=== PATIENT | male | born 1955 | race Caucasian/White ===

== ENCOUNTER 2024-11-23 11:01 | Emergency (ER) | payer MEDICARE, SELFPAY ==
[2024-11-23 11:09] VITALS: BP 147/80; PULSE 68; RESP 14; TEMP 36.6; O2SAT 97
[2024-11-23 11:17] VITALS: PULSE 71
--- OUTSIDE RECORDS SUMMARY | 2024-11-23 11:39 | XMS_ITS | Encounter Summary ---
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 chest. FINDINGS/IMPRESSION: Low lung volumes with bronchovascular crowding. There is no focal consolidation, pleural effusion, or pneumothorax. The cardiac silhouetteis normal. There is atherosclerotic calcification of the aortic arch. Degenerative changes are noted in the shoulders. Elevated left hemidiaphragm. Report dictated by Sandro Lawson MD, (Key Holder). Charlie Lopez MD have personally reviewed and interpreted this examination/study. > Interpreting Provider: Charlie Leon MD on 11/21/2024 10:30 PM Veronica Giraldo HEAD OF [employer] SALES REPRESENTATIVE DIAGNOSTIC IMAGING O RDERABLES Final Result documented in this encounter Visit Diagnoses Diagnosis Dizziness Dizziness and giddiness documented in this encounter Administered Medications Inactive Administered Medications - up to 3 most recent administrations Medication Order MAR Action Action Date Dose Rate Site 0.9% NaCl injection 1-10 mL 1-10 mL, Intracatheter, PRN, Other, peripheral line flush, Starting on 11/21/24 at 1938, Until 11/22/24 at 1837, Flush peripheral IV catheter with 1-10 mL of normal saline before and after medications and prn to clear blood from the line or to verify patency. 0.9% NaCl injection 3 mL 3 mL, Intracatheter, EVERY 8 HOURS, First dose on 11/21/24 at 2200, Until Discontinued, Flush peripheral IV catheter with 3 mL of normal saline every 8 hours. meclizine (Antivert) tablet 25 mg 25 mg, Oral, NOW, 1 dose, On 11/21/24 at 194 $ Given 11/21/2024 9:30 PM CDT 25 mg documented in this encounter Active and Recently Administered Medications Times are shown in CDT. Scheduled Medication Order 11/20/2024 11/21/2024 11/22/2024 0.9% NaCl injection 3 mL(Linked Group 1) 3 mL, Intracatheter, EVERY 8 HOURS, First dose on 11/21/24 at 2200, Until Discontinued, Flush peripheral IV catheter with 3 mL of normal saline every 8 hours. 2200 (Due) 0600 (Due)1400 (Due) meclizine (Antivert) tablet 25 mg (COMPLETED) 25 mg, Oral, NOW, 1 dose, On 11/21/24 at 1945 2130 ($ Given - Provider: Carlitos Langley RN) PRN Medication Order 11/20/2024 11/21/2024 11/22/2024 0.9% NaCl injection 1-10 mL(Linked Group 1) 1-10 mL, Intracatheter, PRN, Other, peripheral line flush, Starting on 11/21/24 at 1938, Until 11/22/24 at 183, Flush peripheral IV catheter with 1-10 mL of normal saline before and after medications and prn to clear blood from the line or to verify patency. Linked Groups Order Group 1: SALINE LOCK, INSERT AND MAINTAIN (CANCELED) Routine, CONTINUOUS, Starting on [facility] 11/21/24 at 1945, Until Specified, New collection, Task Completed: Yes And 0.9% NaCl injection 3 mLJump to med 3 mL, Intracatheter, EVERY 8 HOURS, First dose on [facility] 11/21/24 at 2200, Until Discontinued, Flush peripheral IV catheter with 3 mL of normal saline every 8 hours. And 0.9% NaCl injection 1-10 mLJump to med 1-10 mL, Intracatheter, PRN, Other, peripheral line flush, Starting on [facility] 11/21/24 at 1938, Until [place] 11/22/24 at 1837, Flush peripheral IV catheter with 1-10 mL of normal saline before and after medications and prn to clear blood from the line or to verify patency. documented in this encounter Care Teams Permaculture Designer Relationship Specialty Start Date End Date Leila Cespedes MD [address] [id number] PCP - General Internal Medicine 06/09/24 documented as of this encounter
--- OUTSIDE RECORDS SUMMARY | 2024-11-23 11:39 | XMS_ITS | CONTINUITY OF CARE DOCUMENT ---
Author Name enrique, enrique Address Unknown Organization [facility] Address [address] [place] [address] Phone [phone] Care Team Providers Care Autocad Designer Name Role Phone Cameron HAMMOND, Davion Unavailable PEGGY DIEGO Unavailable [phone] KERRIE NATHAN MD Unavailable PROBLEMS Condition Status Date Provider Notes OBESITY active Gosia Stahlschmidt CAD-08/15 CAROTID NEG completed - Davion edge MD HTN-02/16 ECHO MOD LVHEF 60 active ? Juan Jose dutton RN LEG PAIN-05/15 TANYA DOP NEG active - Luciana Barnes MD SLEEP APNEA-08/16 ON CPAP active Davion le MD CAD-07/17 NUC NEG completed - Davion Barnes MD SHORTNESS OF BREATH-06/17 NU C NEG active ? 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 RENAL ARTERY STENOSIS-02/16 DUPLEX NEG completed - Davion Barnes MD CAROTID ARTERY DISEASE- 02/16 CAROTID NEG completed - Davion Barnes MD OSTEOARTHRITIS-KNEES completed - Davion Barnes MD Hypercholesterolemia active Monika Gamino lder CAD S/P BMS-RCA MAY 2008 S/P RHETT RCA 09/26/2023 active Davion Barnes MD ENCOUNTERS Date Type Provider Location Encounter Diag nosis - In-person encounter Office Visit Davion Barnes MD [facility] - In-person encounter Office Visit Davion Barnes MD [facility] Ventricular tachycardia, unspecified - In-person encounter Office Visit Davion Barnes MD [facility] CVA - In-person encounter Office Visit Davion Barnes MD [facility] - In-person encounter Office Visit Davion Barnes MD [facility] CAD S/P BMS-RCA MAY 2008 S/P RHETT RCA 09/26/2023 - In-person encounter Office Visit Davion Barnes MD [facility] - In-person encounter Office Visit Davion Barnes MD [facility] - In-person encounter Office Visit Davion Barnes MD [facility] - In-person encounter Office Visit Davion Barnes MD [facility] - In-person encounter Office Visit Davion Barnes MD [facility] - In-person encounter Office Visit Davion Barnes MD [facility] - In-person encounter Office Visit Davion Barnes MD [facility] Gout - In-person encounter Office Visit Davion Barnes MD [facility] Diabetes mellitus - In-person encounter Office Visit Davion Barnes MD [facility] - In-person encounter Office Visit Davion Barnes MD [facility] - In-person encounter Office Visit Davion Barnes MD [facility] - In-person encounter Office Visit Davion Barnes MD [facility] OSTEOARTHRITIS - In-person encounter Office Visit Davion Barnes MD [facility] - In-person encounter Office Visit Davion Barnes MD [facility] - In-person encounter Office Visit Davion Barnes MD [facility] OSTEOARTHRITIS-KNEESCA ROTID ARTERY DISEASE- 02/16 CAROTID NEGRENAL ARTERY STENOSIS-02/16 DUPLEX NEG - In-person encounter Office Visit Davion Barnes MD [facility] CAD S/P BMS-RCA MAY 2008 S/P RHETT RCA 09/26/2023HTN-02/16 ECHO MOD LVHEF 60LEG PAIN-05/15 TANYA DOP NEGCAD-06/07 CARDIOPULM NLCAROTID ARTERY DISEASE - In-person encounter Office Visit Davion Barnes MD [facility] - In-person encounter Office Visit Davion Barnes MD [facility] - In-person encounter Office Visit Davion Barnes MD [facility] SHORTNESS OF BREATH-06/17 NUC NEG - In-person encounter Office Visit Davion Barnes MD [facility] CAD-08/15 CAROTID NEGCAD S/P BMS-RCA MAY 2008 S/P RHETT RCA 09/26/2023SLEEP APNEA-2/09 ON CPAPCAD-07/17 NUC NEG - In-person encounter Office Visit Davion Barnes MD [facility] - In-person encounter Office Visit Davion Barnes MD [facility] - In-person encounter Office Visit Davion Barnes MD [facility] HTN-02/16 ECHO MOD LVHEF 60SLEEP APNEA-2/09 ON CPAP - In-person encounter Office Visit aDvion Barnes MD [facility] CAD S/P BMS-RCA MAY 2008 S/P RHETT RCA 09/26/2023Hypercholeste rolemia VITAL SIGNS Date Observation Value Provider Body Mass Index (Ratio) 45.77 kg/m2 Salma Barnes MD blood pressure, cuff size regular Ke rri Linda blood pressure, diastolic 70 mm[Hg] Ke rri Linda blood pressure, systolic 150 mm[Hg] Foster ri Linda oxygen saturation, oximetry 97 % Monika Mckeon pulse rate 61 /min Monika Gamino [facility] weight E&M 310 [lb_av] Monika Gamino [facility] height E&M 69 [in_i] Monika Gamino [facility] Body Mass Index (Ratio) 46.51 kg/m2 Salma Barnes MD blood pressure, diastolic 70 mm[Hg] Am yuan Ventimiglia [facility] blood pressure, systolic 132 mm[Hg] [place] nda Ventimiglia [facility] oxygen saturation, oximetry 98 % Maryjane Ventimiglia [facility] respiratory rate E&M 14 /min Susana Seals weight E&M 315 [lb_av] Susana Seals height E&M 69 [in_i] Susana Seals blood pressure, cuff size regular Williams Seals Body Mass Index (Ratio) 48.82 kg/m2 Salma Barnes MD blood pressure, diastolic 74 mm[Hg] Leobardo suarez Gomez blood pressure, systolic 159 mm[Hg] Tanya guardado Gomez oxygen saturation, oximetry 98 % [facility] pulse rate 68 /min [facility] blood pressure, cuff size regular Leobardo erick Gomez weight E&M 330.6 [lb_av] [facility] height E&M 69 [in_i] [facility] Gomez Body Mass Index (Ratio) 51.53 kg/m2 Salma Barnes MD blood pressure, diastolic -1 mm[Hg] Li nkLogic blood pressure, systolic 146 mm[Hg] Cassy ogic pulse rate 66 /min David blood pressure, diastolic 70 mm[Hg] Ja rret blood pressure, systolic 146 mm[Hg] Jar ret blood pressure, cuff size large Ja rret oxygen saturation, oximetry 97 % David respiratory rate E&M 16 /min David weight E&M 349 [lb_av] David y height E&M 69 [in_i] David y Body Mass Index (Ratio) 51.68 kg/m2 Salma Barnes MD blood pressure, diastolic 72 mm[Hg] Li nkLogic blood pressure, systolic 134 mm[Hg] Cassy kLogic blood pressure, cuff size large Ja rret blood pressure, diastolic 72 mm[Hg] Ja rret blood pressure, systolic 134 mm[Hg] Jar ret pulse rate 67 /min David oxygen saturation, oximetry 94 % David respiratory rate E&M 16 /min David weight E&M 350 [lb_av] David height E&M 69 [in_i] David Body Mass Index (Ratio) 52.71 kg/m2 Salma Barnes MD blood pressure, diastolic 86 mm[Hg] Chantal nkLog blood pressure, systolic 158 mm[Hg] Cassy kLog pulse rate 71 /min David blood pressure, cuff size regular Ja blood pressure, diastolic 86 mm[Hg] Ja rr blood pressure, systolic 158 mm[Hg] [facility] oxygen saturation, oximetry 95 % David respiratory rate E&M 16 /min Davdi weight E&M 357 [lb_av] David height E&M 69 [in_i] David Body Mass Index (Ratio) 54.78 kg/m2 Salma Barnes MD blood pressure, diastolic 87 mm[Hg] Williams Giordano blood pressure, systolic 188 mm[Hg] Marlena Giordano oxygen saturation, oximetry 97 % Melodie Giordano pulse rate 71 /min Melodie Giordano weight E&M 371 [lb_av] Melodie Giordano blood pressure, cuff size large An mychal Giordano height E&M 69 [in_i] Melodie Pasquale Body Mass Index (Ratio) 55.02 kg/m2 Norah Barnes blood pressure, diastolic 71 mm[Hg] Li nkLogic blood pressure, systolic 172 mm[Hg] Cassy Staceyogic pulse rate 62 /min Arlet Solo blood pressure, diastolic 71 mm[Hg] St acy Solo blood pressure, systolic 172 mm[Hg] Sta cy Solo oxygen saturation, oximetry 95 % Arletheidy Banda respiratory rate E&M 18 /min Arlet D sofiya weight E&M 372.6 [lb_av] Arletheidy Banda height E&M 69 [in_i] Arlet Banda Body Mass Index (Ratio) 55.52 kg/m2 Salma Barnes MD blood pressure, diastolic 75 mm[Hg] Chantal bishopLoghelena blood pressure, systolic 182 mm[Hg] Cassy Ibarraoghelena blood pressure, diastolic 75 mm[Hg] St ackaleb Banda blood pressure, systolic 182 mm[Hg] Arnoldo Banda oxygen saturation, oximetry 93 % Arlet Solo pulse rate 75 /min Arlet Solo respiratory rate E&M 16 /min Arlet arriaza weight E&M 376 [lb_av] Arlet Solo height E&M 69 [in_i] Arlet Solo Body Mass Index (Ratio) 55.22 kg/m2 Salma Barnes MD blood pressure, diastolic 74 mm[Hg] Chantal nkLoghelena blood pressure, systolic 156 mm[Hg] Cassy kLogic blood pressure, cuff size large Mi ye [place] blood pressure, diastolic 74 mm[Hg] Mi ye [place] blood pressure, systolic 156 mm[Hg] Patel helle [place] oxygen saturation, oximetry 96 % Zabrina Delcid respiratory rate E&M 16 /min Liudmila bradshaw Bhavin pulse rate 81 /min Zabrina jalloh weight E&M 374 [lb_av] Zabrina jalloh height E&M 69 [in_i] Zabrina jalloh Body Mass Index (Ratio) 54.49 kg/m2 Salma Barnes MD blood pressure, cuff size large Mi ye [place] blood pressure, diastolic 90 mm[Hg] Nh ye [place] blood pressure, systolic 150 mm[Hg] Patel parmar [place] oxygen saturation, oximetry 96 % Zabrina Delcid respiratory rate E&M 16 /min Liudmila Delcid pulse rate 66 /min Zabrina jalloh weight E&M 369 [lb_av] Zabrina jalloh height E&M 69 [in_i] Zabrina jalloh height E&M 69 [in_i] Davion Barnes MD Body Mass Index (Ratio) 50.06 kg/m2 Aleks Powers blood pressure, diastolic 80 mm[Hg] Earl Barnes MD blood pressure, systolic 138 mm[Hg] Ricky Barnes MD height E&M 69 [in_i] Davion Barnes MD weight E&M 339 [lb_av] Davion Barnes MD Body Mass Index (Ratio) 52.86 kg/m2 Aleks Powers blood pressure, cuff size regular Cy raoul Machuca blood pressure, diastolic 70 mm[Hg] Cy raoul Machuca blood pressure, systolic 140 mm[Hg] Nighat Machuca oxygen saturation, oximetry 93 % Margareth Machuca respiratory rate E&M 16 /min Margareth Machuca pulse rate 76 /min Margareth vera weight E&M 358 [lb_av] Margareth vera height E&M 69 [in_i] Margareth vera Body Mass Index (Ratio) 56.85 kg/m2 Aleks Powers blood pressure, diastolic, standing 80 mm [Hg] Davion Barnes MD blood pressure, systolic, standing 150 mm [Hg] Davion Barnes MD blood pressure, diastolic, sitting 80 mm[ Hg] Davion Barnes MD blood pressure, systolic, sitting 145 mm[ Hg] Davion Barnes MD blood pressure, diastolic, left arm 70 mm [Hg] Brianna O'David blood pressure, systolic, left arm 150 mm [Hg] Brianna O'David blood pressure, diastolic, right arm 70 m m[Hg] Brianna O'David blood pressure, systolic, right arm 130 m m[Hg] Brianna O'David blood pressure, diastolic 70 mm[Hg] [facility] O'David blood pressure, systolic 130 mm[Hg] [facility] O'David oxygen saturation, oximetry 97 % Brianna O'David respiratory rate E&M 18 /min Brianna O'David weight E&M 385 [lb_av] Brianna O'David height E&M 69 [in_i] Brianna O'David Body Mass Index (Ratio) 57.59 kg/m2 Renee ssa Puhse blood pressure, diastolic 80 mm[Hg] Da osvaldo Soren blood pressure, systolic 156 mm[Hg] Dac ia Soren oxygen saturation, oximetry 93 % Xochitl Soren respiratory rate E&M 18 /min Xochitl V oss pulse rate 72 /min Xochitl Soren weight E&M 390 [lb_av] Xochitl Soren height E&M 69 [in_i] Xochitl [place] Body Mass Index (Ratio) 57.29 kg/m2 Nestor Turner blood pressure, cuff size large Garret rri [facility] blood pressure, diastolic 80 mm[Hg] Garret rri [facility] blood pressure, systolic 130 mm[Hg] Foster Ernandezandreasadibaylor [facility] oxygen saturation, oximetry 98 % Monika Ernandeznancy respiratory rate E&M 20 /min Monika cabral pulse rate 78 /min Monika Ernandezlety [facility] weight E&M 388 [lb_av] Monika Hanny er height E&M 69 [in_i] Monika Hanny er Body Mass Index (Ratio) 55.67 kg/m2 Salma Barnes MD blood pressure, diastolic 79 mm[Hg] Khalif Saxena blood pressure, systolic 159 mm[Hg] Cindi Saxena oxygen saturation, oximetry 94 % Aby Saxena respiratory rate E&M 20 /min Griselda Saxena pulse rate 79 /min Aby vargas weight E&M 377 [lb_av] Aby Reagan guero height E&M 69 [in_i] Aby vargas pulse rate, sitting, left 64 /min Me selene Tyrell orthostatic blood pr essure, sitting, left arm, diastolic 71 Angle Santillan orthostatic blood pr essure, sitting, left arm, systolic 119 Angle Santillan pulse rate, sitting, right 64 /min M anna Santillan orthostatic blood pr essure, sitting, right arm, diastolic 65 Angle Santillan orthostatic blood pr essure, sitting, right arm, systolic 111 Angle Santillan height E&M 69 [in_i] Angle Santillan height in centimeters E&M 175.26 cm Me morton Santillan blood pressure, diastolic 70 mm[Hg] Khalif Saxena blood pressure, systolic 172 mm[Hg] Cindi Saxena pulse rate 85 /min Aby Reagan guero oxygen saturation, oximetry 97 % Aby Saxena respiratory rate E&M 18 /min Griselda Saxena Body Mass Index (Ratio) 55.37 kg/m2 Jessica Saxena weight E&M 375 [lb_av] AbyMarla Reagan [facility] blood pressure, diastolic 75 mm[Hg] Ar selene Santillan blood pressure, systolic 156 mm[Hg] Evelina altamirano Santillan pulse rate 80 /min Angle Santillan oxygen saturation, oximetry 97 % Angle Santillan respiratory rate E&M 16 /min Angle Santillan Body Mass Index (Ratio) 55.37 kg/m2 [facility] weight E&M 375 [lb_av] Angle Santillan blood pressure, diastolic 69 mm[Hg] Earl Barnes MD blood pressure, systolic 140 mm[Hg] Ricky Barnes MD Body Mass Index (Ratio) 53.45 kg/m2 [facility] pulse rate 78 /min Angle Santillan oxygen saturation, oximetry 98 % Angle Santillan respiratory rate E&M 15 /min Angle Santillan weight E&M 362 [lb_av] Angle Santillan Body Mass Index (Ratio) 54.39 kg/m2 Lia Oakley blood pressure, huang tolic, second observation 73 mm[Hg] Maude Elliottoney blood pressure, syst olic, second observation 153 mm[Hg] Maude Elliottoney blood pressure, diastolic 73 mm[Hg] Fatimah Elliottoney blood pressure, systolic 153 mm[Hg] Radha Oakley pulse rate 71 /min Maude Oakley oxygen saturation, oximetry 96 % Maude Oakley respiratory rate E&M 18 /min Maude Elliottoney weight E&M 367 [lb_av] Maude Oakley Body Mass Index (Ratio) 51.28 kg/m2 Shiv Jin blood pressure, diastolic, left arm 69 mm [Hg] Justin Jin blood pressure, systolic, left arm 126 mm [Hg] Justin Jin blood pressure, diastolic, right arm 74 m m[Hg] Justin Jin blood pressure, systolic, right arm 135 m m[Hg] Justin Burtonran blood pressure, diastolic 69 mm[Hg] Cox blood pressure, systolic 126 mm[Hg] Yoav Jin pulse rate 73 /min Justin Jin oxygen saturation, oximetry 98 % Justin Jin respiratory rate E&M 16 /min Justin Jin weight E&M 346 [lb_av] Justin Jin height E&M 69 [in_i] Justin Jin blood pressure, diastolic, standing 94 mm [Hg] Juan Jose Cain RN blood pressure, systolic, standing 229 mm [Hg] Juan Jose Cain RN blood pressure, diastolic, sitting 106 mm [Hg] Juan Jose Cain RN blood pressure, systolic, sitting 228 mm[ Hg] Juan Jose Cain RN blood pressure, huang tolic, supine, left arm 72 mm[Hg] Juan Jose Cain RN blood pressure, syst olic, supine, left arm 202 mm[Hg] Juan Jose Cain RN blood pressure, diastolic, left arm 88 mm [Hg] Juan Jose Cain RN blood pressure, systolic, left arm 189 mm [Hg] Juan Jose Cain RN blood pressure, diastolic, right arm 101 mm[Hg] Juan Jose Cain RN blood pressure, systolic, right arm 226 m m[Hg] Juan Jose Steeles RN blood pressure, diastolic 88 mm[Hg] Jarett gita Cain RN blood pressure, systolic 189 mm[Hg] Juan Jose Cain RN pulse rate 68 /min Juan Jose Cain RN oxygen saturation, oximetry 99 % Juan Jose Steelenato ALEJO respiratory rate E&M 20 /min Juan Jose bendernato RN weight E&M 370 [lb_av] Juan Jose Steelenato ALEJO blood pressure, diastolic, left arm 80 mm [Hg] Justin Jin blood pressure, systolic, left arm 140 mm [Hg] Yoavwilliams Jin blood pressure, diastolic, right arm 75 m m[Hg] Yoavwilliams Jin blood pressure, systolic, right arm 142 m m[Hg] Justin Jin blood pressure, diastolic 80 mm[Hg] Cox blood pressure, systolic 140 mm[Hg] Yoav williams Jin pulse rate 74 /min Yoavwilliams Jin oxygen saturation, oximetry 99 % Justin Jin respiratory rate E&M 18 /min Justin Jin weight E&M 349 [lb_av] Justin Jin blood pressure, diastolic, left arm 88 mm [Hg] Azul Bergeron blood pressure, systolic, left arm 184 mm [Hg] Azul Bergeron blood pressure, diastolic, right arm 71 m m[Hg] Azul Bergeron blood pressure, systolic, right arm 161 m m[Hg] Azul Bergeron respiratory rate E&M 18 /min Azul Bergeron pulse rate 62 /min Azul Bergeron oxygen saturation, oximetry 96 % Azul Bergeron blood pressure, systolic 71 mm[Hg] Mann Bergeron weight E&M 374 [lb_av] Azul Bergeron blood pressure, diastolic 78 mm[Hg] Ronan dodd Ayon blood pressure, systolic 173 mm[Hg] Antione jones Gabo pulse rate 76 /min Poonam Gabo oxygen saturation, oximetry 96 % Poonam Gabo respiratory rate E&M 18 /min Torsten Ayon weight E&M 358 [lb_av] Poonam Ayon blood pressure, diastolic 68 mm[Hg] Jarett Cain RN blood pressure, systolic 127 mm[Hg] Juan Jose Cain RN pulse rate 77 /min Juan Jose Cain RN oxygen saturation, oximetry 97 % Juan Jose Cain RN respiratory rate E&M 18 /min Juan Jose james RN weight E&M 341 [lb_av] Juan Jose Cain RN blood pressure, diastolic 68 mm[Hg] Yue seph [place] blood pressure, systolic 128 mm[Hg] Jarad ferguson [place] pulse rate 78 /min Zeferino [place] oxygen saturation, oximetry 98 % Zeferino [place] respiratory rate E&M 16 /min Zeferino [place] weight E&M 343 [lb_av] Zeferino [place] blood pressure, diastolic 56 mm[Hg] Jarett Cain RN blood pressure, systolic 108 mm[Hg] Juan Jose Cain RN pulse rate 60 /min Juan Jose Cain RN oxygen saturation, oximetry 96 % Juan Jose Cain RN respiratory rate E&M 18 /min Juan Jose james RN weight E&M 347 [lb_av] Juan Jose Cain RN ALLERGIES No Known Drug Allergies RESULTS Date Observation Value Provider Reference Range Interpretation Location red blood cell distribution width, size density 42.5 fL LinkLog[facility] - immature granulocytes, percentage of total cells, blood 0.1 % [facility] - nucleated red blood cells as percent of blood leukocytes 0.0 % [facility] - red blood cell (erythrocyte) count, per high power field 0.0 10*3/UL [facility] - eosinophils as percent of blood leukocytes 1.8 % [facility] - neutrophils as percent of blood leukocytes 52.7 % [facility] - Absolute Neutrophils 4.4 CELLS/UL [facility] 1.5 - 7.8 basophils as percent of blood leukocytes 0.8 % [facility] - Absolute Basophils 0.1 CELLS/UL [facility] 0.0 - 0.2 monocytes as percent of blood leukocytes 9.0 % [facility] - Absolute Monocytes 0.8 CELLS/UL [facility] 0.2 - 1.0 lymphocytes as percent of blood leukocytes 35.6 % [facility] - Absolute Lymphocytes 3.0 CELLS/UL [facility] 0.9 - 3.9 mean platelet volume 10.2 (?) LinkLog - platelet count 276.0 THOUSAND/UL [facility] 100.0 - 400.0 mean corpuscular hemoglobin concentration, RBC 33.0 G/DL [facility] 31.0 - 38.0 mean corpuscular hemoglobin, RBC 30.3 pg [facility] 25.0 - 35.0 mean corpuscular volume, RBC 91.6 fL [facility] 75.0 - 100.0 hematocrit, blood 43.6 % [facility] 35.0 - 55.0 hemoglobin, blood 14.4 g/dL [facility] 11.5 - 16.5 erythrocyte count, whole blood 4.8 MILLION/UL [facility] 3.5 - 5.5 hemoglobin A1C, blood, as % of total hemoglobin 6.0 % [facility] 4.0 - 6.0 anion gap, serum 13.1 [facility] - albumin/globulin ratio, serum 2.2 g/dL [facility] 1.1 - 2.5 globulin, serum 3.4 [facility] 2.3 - 3.8 urea nitrogen/creatinine ratio, serum 14.0 [facility] - Estimated Glomerular Filtration Rate (calc) 81.0 (?) [facility] 59.0 - chloride, serum 100.9 mmol/L [facility] 98.0 - 107.0 potassium, serum 3.9 mmol/L [facility] 3.5 - 5.1 sodium, serum 143.0 mmol/L [facility] 136.0 - 145.0 creatine, serum 1.0 mg/dL [facility] 0.7 - 1.2 carbon dioxide, venous blood 29.0 mmol/L [facility] 23.0 - 31.0 albumin, serum 4.1 g/dL [facility] 3.5 - 5.2 calcium, serum 10.0 mg/dL [facility] 8.6 - 10.2 aspartate aminotransferase (SGOT), serum 27.0 1/L [facility] 0.0 - 40.0 alkaline phosphatase, serum 49.0 1/L [facility] 40.0 - 130.0 alanine aminotransferase (SGPT), serum 31.0 1/L [facility] 0.0 - 41.0 protein, total, serum 7.5 g/dL [facility] 6.6 - 8.7 urea nitrogen, blood 14.0 mg/dL [facility] 8.0 - 23.0 Glucose Urine 84.0 mg/dL [facility] 74.0 - 99.0 bilirubin, serum, total 0.2 mg/dL [facility] 0.0 - 1.2 very low density lipoproteins 53.6 mg/dL [facility] 5.0 - 40.0 High LDL/HDL (low-density lipoprotein/high-den sity lipoprotein) ratio 2.0 RATIO [facility] - HDL cholesterol, serum 37.0 mg/dL [facility] 35.0 - 55.0 sum total cholesterol 164.0 mg[facility] 0.0 - 200.0 Triglycerides-direct 268.0 mg/dL [facility] 0.0 - 150.0 High platelet count 343 10*3/uL [facility] hematocrit, blood 42.4 % [facility] thyroid stimulating hormone, serum 1.70 u[IU]/mL [facility] alanine aminotransferase (SGPT), serum 26 1/L [facility] aspartate aminotransferase (SGOT), serum 26 1/L [facility] creatinine, serum 0.8 mg/dL [facility] potassium, serum 4.2 mmol/L [facility] sodium, serum 141 mmol/L [facility] creatinine, random, urine 332.6 mg/dL Link[facility] 20-370 Vanillylmandelate acid/creatinine ratio, urine, quantitative 3.0 mg/g{creat} [facility] 1.1-4.1 aldosterone, serum 7 ng/dL [facility] plasma renin activity 32.09 [facility] 0.25-5.82 High thyroid stimulating hormone, serum 1.544 u[IU]/mL [facility] cholesterol/HDL ratio, serum 3.1 [facility] triglyceride, serum, fasting 89 mg/dL [facility] HDL cholesterol, serum 49 mg/dL [facility] LDL cholesterol, serum 84 mg/dL [facility] cholesterol, serum 151 mg/dL [facility] globulins, serum, total 3.0 g/dL [facility] estimated glomerular filtration rate 107.1 mL/min [facility] albumin/globulin ratio, serum 1.3 [facility] protein, total, serum 6.9 g/dL [facility] albumin, serum 3.9 g/dL [facility] bilirubin, serum, total 0.5 mg/dL [facility] alkaline phosphatase, serum 61 1/L [facility] alanine aminotransferase (SGPT), serum 31 1/L [facility] aspartate aminotransferase (SGOT), serum 25 1/L [facility] calcium, serum 9.6 mg/dL [facility] blood glucose, fasting 96 mg/dL [facility] creatinine, serum 0.8 mg/dL [facility] urea nitrogen, blood 12 mg/dL [facility] carbon dioxide, serum, total 29 mmol/L [facility] chloride, serum 106 mmol/L [facility] potassium, serum 4.0 mmol/L [facility] sodium, serum 143 mmol/L [facility] platelet count 261 10*3/uL [facility] red blood cell distribution width 14.1 % [facility] mean corpuscular hemoglobin concentration, RBC 33.6 g/dL [facility] mean corpuscular hemoglobin, RBC 30.3 pg [facility] mean corpuscular volume, RBC 90.2 fL [facility] hematocrit, blood 44.0 % [facility] hemoglobin, blood 14.8 g/dL [facility] [facility] ([facility]BC[facility] count 4.9 10*6/mm3 [facility] neutrophils, segmented as percent of blood leukocytes 3.8 % [facility] monocyte count, blood 0.4 10*3/mm3 [facility] lymphocyte count, blood 2.1 10*3/mm3 [facility] neutrophils as percent of blood leukocytes 60.3 % [facility] monocytes as percent of blood leukocytes 5.7 % [facility] lymphocytes as percent of blood leukocytes 34.0 % [facility] leukocyte count, blood 6.3 10*3/mm3 [facility] alanine aminotransferase (SGPT), serum 35 1/L [employer] 9-60 Normal aspartate aminotransferase (SGOT), serum 27 1/L [employer] 10-35 Normal alkaline phosphatase, serum 54 1/L [employer] 40-115 Normal bilirubin, serum, total 0.4 mg/dL [employer] 0.2-1.2 Normal albumin/globulin ratio, serum 1.4 (calc) [employer] 1.0-2.1 Normal globulins, serum, total 2.9 G/DL (CALC) [employer] 2.1-3.7 Normal albumin, serum 4.1 g/dL [employer] 3.6-5.1 Normal protein, total, serum 7.0 g/dL [employer] 6.2-8.3 Normal calcium, serum 9.2 mg/dL [employer] 8.6-10.2 Normal carbon dioxide, venous blood 28 mmol/L [employer] 21-33 Normal chl [id number]||2024-11-23 14:12:00|CT_ITS|FROHNERTP|Imaging|[id number]|"EXAMINATION: CTA BRAIN/CAROTID DATE: 11/23/2024 13:54 INDICATION: Intermittent dizziness TECHNIQUE: Computed tomographic angiography (CTA) of the head and neck was performed with 100 mL Omni paque-350 intravenous contrast. Multiplanar reconstructions and maximum intensity projection 3D-recon structions of the carotid arteries and of the intracranial arteries were created by the technologist on a separate workstation. Precontrast CT of the head was also obtained. Automated exposure control and iterative reconstruction technique were employed.The dose-length product was 1746.69 mGy-cm. COMPARISON: None. FINDINGS: Carotid arteries: The aortic arch and the great vessels arising from the arch are normal in caliber with mild scattered nonhemodynamically significant atherosclerotic plaque and no dissection. There is small amount of at herosclerotic plaque with 0% stenosis of the right and left carotid bulbs relative to normal distal a rtery lumen diameter (NASCET criteria). The bilateral extracranial vertebral arteries are codominant with no atherosclerotic plaque. Groundglass opacity in the visualized upper lungs likely related to e xpiratory phase of imaging. Cervical soft tissues are unremarkable. Mild reversal of the normal cervi marycruz lordosis with moderate spondylosis. 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 A few additional infarcts in the right frontal and parietal lobe lewis radiata. No acute intracranial hemorrhage, acute infarction or abnormal extra axial fluid collection. There is mild sc attered white matter hypoattenuation consistent with chronic small vessel ischemic disease. Symmetric prominence of the sulci consistent with mild age-appropriate diffuse cerebral volume loss. Ventricle s are normal and symmetric. No mass/mass effect. No abnormally enhancing lesions on the postcontrast imaging. Moderate mucosal thickening the right maxillary sinus. The orbits and mastoid air cells are normal. Intracranial arteries Vertebral arteries are codominant. Atherosclerotic calcifications without hemodynamically significant stenosis at the bilateral intracranial vertebral arteries and bilateral carotid siphons. There is mi ld, <50% stenosis at the right A1, left M1 and P1 segments. Moderate 50-70% stenosis at the left A1 s egment and right M1 segment. Severe, >70% stenosis at a couple locations along the right P1 segment. Patent anterior communicating artery. There are no aneurysms identified. Cerebral arterial arborizat ion appears symmetric. IMPRESSION: 1. Small amount of atherosclerotic plaque with 0% stenosis of the right carotid bulb relative to norm al distal artery lumen diameter (NASCET criteria). 2. Moderate-sized old infarct in the right parieto-occipital region with several smaller chronic infa rcts in the right frontal and parietal lobe lewis radiata. No evident acute intracranial process or abnormally enhancing brain lesions. 3. Scattered intracranial atherosclerosis with severe stenosis a couple locations along the right P1 segment, moderate stenosis at the right M1 and left A1 segments and mild stenosis at the right A1, le ft M1 and left P1 segments. Reviewed, dictated and finalized at location A. IMPRESSION: 1. Small amount of atherosclerotic plaque with 0% stenosis of the right carotid bulb relative to normal distal artery lumen diameter (NASCET criteria). 2. Moderate-sized old infarct in the right parieto-occipital region with severa l smaller chronic infarcts in the right frontal and parietal lobe lewis radiat a. No evident acute intracranial process or abnormally enhancing brain lesions. 3. Scattered intracranial atherosclerosis with severe stenosis a couple locatio ns along the right P1 segment, moderate stenosis at the right M1 and left A1 se gments and mild stenosis at the right A1, left M1 and left P1 segments. "
--- OUTSIDE RECORDS SUMMARY | 2024-11-23 11:39 | XMS_ITS | Continuity of Care Document ---
Author Organization [facility] Address [address] [place] [address] Phone Care Team Providers Care Senior Behavioral Scientist Name Role Phone Ashu HAMMOND, Emerson Unavailable Unavailable Procedures Procedure Date Work/medical disability examination [facility] Prolonged serv, w/o contact, 1st hr X-ray exam of knee, 1 or2 views 010 X-ray exam of both knees, standing X-ray exam of knee, 1 or2 views 010 Advance Directives Directive Yes / No Effective Date File Name No Information Encounters Encounter Description Practice Location Reason(s) For Visit Diagnoses Date Provider Providers Copied on Encounter Work/medical disability examination [facility], [address] [place] [address], [id number], tel:[phone] [facility]G Ashu Norman. [address] [place] [address], [id number], [place]. tel:[phone] Family History Family Member Type Diagnosis Age At Onset No Information Payers Payer name Insurance type Covered alliance party ID Authoriza tion(s) No Information Social History Type Description Quantity Date Captured Comments Sex Male Smoking Status No Information Chief Complaint And Reason For Visit No Information Reason For Referral Reason For Referral No Information History Of Present Illness Encounter Date Complaint History Of Prese nt Illness No Information Functional Status Date Functional Assessmen t No Information Instructions Date Instruction Additional Infor mation No Information Assessments Type Assessment Date No Information Patient Care Teams Name Effective Dates (start - stop) Status Members No Information
--- OUTSIDE RECORDS SUMMARY | 2024-11-23 11:39 | XMS_ITS | Encounter Summary ---
Author Organization [facility] Address [address] [place] [address] Care Team Providers Care Bi Lead Name Role Phone Dariela Ignacio KELLIE Primary Care Provider [phone] Leila Cespedes MD Primary Care Provider Encounter Details Date Type Department Care Team (Late st Contact Info) Description 01/22/2020 Lab Requisition [facility] [address] [place] [address] Social History Tobacco Use Types Packs/Day Years Used Date Smoking Tobacco: Never Smokeless Tobacco: Never Sex and Gender Information Value Date Recorded Sex Assigned at Not on file 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 Gender Identity Not on file Sexual Orientation Not on file documented as of this encounter Plan of Treatment Upcoming Encounters Date Type Department Care Team (Late Contact Info) Description 01/14/2025 11:30 AM CDT Office Visit [facility] - Neurology [address] [place] [phone] Willis Gloria MD [address] [place] [address] [place] [phone] documented as of this encounter Procedures Procedure Name Priority Date/Time Associated Diagnosis Comments SARS-COV-2 (COVID-19) IN HOUSE Routine 01/22/2020 7:20 AM CDT documented in this encounter Results * SARS-COV-2 (COVID-19) IN HOUSE (01/22/2020 7:20 AM CDT) COVID-19 PCR Not detected Not detected, Invalid 01/23/2020 1:48 AM CDT [facility] Microbiology SPECIMEN FROM NASOPHARYNGEAL STRUCTURE / Unknown Collection / Unknown 01/22/2020 7:20 AM CDT 01/22/2020 4:07 PM CDT Narrative [facility] - 01/23/2020 1:48 AM CDT This Real Time RT-PCR assay was developed and its performance characteristics determined by [facility]. This test has been authorized by the Food and Drug administration (FDA)under an Emergency Use Authorization (EUA). This test has been validated in accordance with the FDA's guidance document Policy for Diagnostic Testing in Laboratories Certified to perform High Complexity Testing under CLIA prior to Emergency Use Authorization for Coronavirus Disease-2019 during the Public Health Emergency issued on September 05, 2019. FDA independent review of this validation is pending. This test is only authorized for the duration of time the declaration that circumstances exist justifying the authorization of emergency use of in vitro diagnostic tests for detection of SARS-CoV-2 virus and/or diagnosis of COVID-19 infection under section 564(b)(1) of the Act, 21 U.S.C 360bbb-3 (b)(1), unless the authorization is terminated or revoked sooner. us LAB - MICROBIOLOGY ORDERABLES Fi nal Result [facility] [address] [place] [address], [facility] [phone] documented in this encounter Visit Diagnoses Not on filedocumented in this encounter Additional Health Concerns Infection Onset Date Last Indicated Resolved Time COVID-19 Under Investigation 01/22/2020 01/22/2020 01/23/2020 1:48 AM CDT COVID-19 Under Investigation 08/20/2024 08/20/2024 08/20/2024 10:23 AM FOOD CRITIC documented as of this encounter Care Teams Bi Lead Relationship Specialty Start Date End Date Dariela Ignacio APRN-MELI [address] [phone] PCP - General Nurse Practitioner Family 01/19/1906/08/24 Leila Cespedes MD [address] [phone] PCP - General Internal Medicine 06/09/24 documented as of this encounter
--- OUTSIDE RECORDS SUMMARY | 2024-11-23 11:40 | XMS_ITS | Clinical Summary ---
Author Organization [facility] [employer] Address [address] [place] [address] Care Team Providers Care Key Cutter Name Role Phone Leila Cespedes MD Primary Care Provider Source Comments [facility],non-owned Affiliates and Associated Physician Practices is amultiple site organization consisting of ambulatory clinics and hospital sitesin [place], [place], [place] and [place]. This disclosure is being madepursuant to the Care Everywhere program and may not contain all information available regarding this patient. Last updated 18.[facility] [employer] Allergies No known active allergies Medications * Be aware that medications may not be up to date on this document. Alwaysverify current medications with the patient. vitamin D3 (Cholecalcifer ol) 25 MCG (1000 UNITS) tablet Take 2 (two) tablets by mouth once daily Active ascorbic acid (Vitamin C) 500 MG tablet Take 2 (two) tablets by mouth once daily Active acetaminophen (Tylenol) 325 MG tablet Take 2 (two) tablets by mouth every 4 hours as needed for Headache Maximum allowable Acetaminophen amount = 4 Grams (4000 mg) / 24 hours. 4 Active atorvastatin (Lipitor) 80 MG tablet Take 1 (one) tablet by mouth at bedtime 4 Active amLODIPine (Norvasc) 10 MG tablet Take 1 (one) tablet by mouth once daily 4 Active ticagrelor (Brilinta) 90 MG tablet Take 1 (one) tablet by mouth 2 times daily 4 Active cilostazol (Pletal) 100 MG tablet Take 1 (one) tablet by mouth 2 times daily 60 tablet 5 5 Active ezetimibe (Zetia) 10 MG tablet Take 1 (one) tablet by mouth once daily 5 Active metoprolol tartrate IR (Lopressor) 25 MG tablet Take 1 (one) tablet by mouth 2 times daily 60 tablet Active Active Problems Problem Noted Date Diagnosed Date Cerebrovascular disease 08/20/2024 Ventricular tachycardia (paroxysmal) 08/20/2024 Hypertension, unspecified type 08/20/2024 Confusion 08/20/2024 Weakness 07/23/2024 History of stroke 07/23/2024 Left hand weakness 07/23/2024 Cerebrovascular accident (CVA), unspecified mech anism 07/23/2024 History of viral infection 05/23/2024 Insect bite 05/23/2024 Lumbar herniated disc 05/23/2024 Occlusion and stenosis of unspecified carotid ar alejandra 05/23/2024 Pain in right leg 05/23/2024 Pain in unspecified limb 05/23/2024 Shortness of breath 05/23/2024 Left-sided weakness 05/20/2024 Dysarthria 05/20/2024 Unsteady gait 05/20/2024 Epidermoid cyst of skin 05/05/2024 Low back pain 04/28/2024 Skin lesion 03/24/2024 Hypokalemia 03/12/2024 Environmental allergies 11/20/2023 Elevated liver enzymes 11/07/2023 Steatosis of liver 10/03/2023 COVID-19 07/04/2022 Stage 1 chronic kidney disease 11/14/2021 Vitamin D deficiency 11/13/2021 Essential (primary) hypertension 11/07/2021 Nocturia 11/07/2021 Proteinuria 09/25/2021 Gout 04/01/2019 Type 2 diabetes mellitus 01/28/2019 Osteoarthrosis 12/28/2015 Atherosclerosis of renal artery 12/27/2010 Sleep apnea 12/27/2010 Obesity 07/06/2008 Hypercholesterolemia 07/08/1959 Resolved Problems Problem Noted Date Diagnosed Date Resolved Date TIA (transient ischemic attack) 05/20/2024 05/23/2024 Upper respiratory infection 01/23/2024 06/06/2024 Encounters Date Type Department Care Team Description 11/22/2024 5:35 PM CDT - 11/22/2024 5:37 PM CDT Emergency [facility] [address] [place] [address] Dizziness Discharge Disposition: Left Against Medical Advice/Discontinued Care 11/21/2024 Travel 10/20/2024 Telephone [facility] - Cardiology [address] [facility], [address] [phone] Aliya Henriquez MD Results 10/07/2024 Telephone [facility] - Cardiology [address] [facility], [facility] [address] [place] [phone] Aliya Henriquez MD Results from Last 3 Months Social History Tobacco Use Types Packs/Day Years Used Date Smoking Tobacco: Never Smokeless Tobacco: Never Tobacco Cessation:Counseling Given: No Alcohol Use Standard Drinks/Week Comments Never 0 [...] Recorded Patient Health Questionnaire-2 Score 0 07/26/2024 [facility] [place] [facility] Occup[facility] ional [facility] - Occupational Stress [...] any time in the past 12 m [facility], were you homeless or living in a fpc (including now)? No 08/22/2024 Sex and Gender Information Value Date Recorded Sex Assigned at Not on file Legal Sex Male 6:59 AM RN NEW GRAD Gender Identity Not on file Sexual Orientation Not on file Last Filed Vital Signs Vital Sign Reading [...] Mass Index 50.12 11/21/2024 5:24 PM CDT Plan of Treatment Upcoming Encounters Date Type Department Care Team (Late st Contact Info) Description 01/14/2025 11:30 AM CDT Office Visit [facility] - Neurology [address] [place] [address], [place] [phone] Willis Gloria MD [address] [place] [address] [place] [phone] Health Maintenance Due Date Last Done Comments COLOGUARD (AGES 45-75) - COLON CA SCREENING 1955 COLON MONITORING 1955 COLONOSCOPY - COLON CA SCREENING 1955 CT COLONOGRAPHY - COLON CA SCREENING 1955 Colorectal Cancer Screening 1955 FIT - COLON CA SCREENING 1955 FLEX SIG - COLON CA SCREENING 1955 HEPATITIS C SCREENING 11/03/1972 DTAP/TDAP/TD VACCINES (1 - Tdap) 1973 PNEUMOCOCCAL VACCINE 50+ (1 of 2 - PCV) 1973 ZOSTER VACCINE (1 of 2) 2004 Respiratory Syncytial Virus (RSV) Vaccine Pt: or over 60 yrs (1 - Risk 60-74 years 1-dose series) 2014 COVID-19 VACCINE ( season) 2024 12/25/2021, 09/22/2020, 09/15/2020, Additional history exists DIABETES RETINOPATHY SCREENING 05/20/2024 DIABETES-FOOT EXAM WITH MONOFILAMENT 05/20/2024 MEDICARE AW CALENDAR YEAR 2024 DIABETES-HGB A1C 03/11/2025 09/08/2024, , 07/23/2024 DIABETES - URINE PROTEIN SCREENING 09/08/2025 09/08/2024 DIABETES-SERUM CREATININE 11/21/20252024, 09/08/2024, 08/22/2024, Additional history exists INFLUENZA VACCINE Completed 04/28/2024, , 06/15/2021, Additional history exists DEPRESSION SCREENING Completed 08/20/2024, 05/20/20 24 HEPATITIS B VACCINE Aged Out No longe r eligible based on patient's age to complete this topic HIB VACCINE Aged Out No longer eligi ble based on patient's age to complete this topic HPV VACCINE Aged Out No longer eligi ble based on patient's age to complete this topic MENINGOCOCCAL (Group B) VACCINE SHARED DECISION-MAKING Aged Out No longer eligible based on patient's age to complete this topic MENINGOCOCCAL GROUPS A/C/Y/W VACCINE Aged Out No longer eligible based on patient's age to complete this topic Procedures Procedure Name Priority Date/Time Associated Diagnosis Comments TROPONIN-I HIGH SENSITIVE REFLEX 1HOUR Timed 11/22/2024 3:51 AM CDT URINALYSIS REFLEX MICROSCOPIC REFLEX CULTURE STAT 11/21/2024 9:27 PM CDT EKG 12-LEAD STAT 11/21/2024 9:26 PM CDT Dizziness TROPONIN-I HIGH SENSITIVE BASELINE + 1HR STAT 11/21/2024 9:26 PM CDT COMPREHENSIVE METABOLIC PANEL STAT 11/21/2024 9:26 PM CDT CBC W AUTO DIFFERENTIAL STAT 11/21/2024 9:[address] HEAD WO CONTRAST STAT 11/21/2024 8 :27 PM CDT Dizziness XR CHEST 1VW PORTABLE STAT 11/21/2024 8:01 PM CDT Dizziness SC ECG/REVIEW INTERPRET ONLY Routine 10/13/2024 9:40 AM CDT Ventricular tachycardia (paroxysmal) (HCC) CARDIAC PROCEDURE ORDER 09/21/2024 CARDIAC PROCEDURE ORDER 08/31/2024 CARDIAC PROCEDURE ORDER 08/28/2024 HEMOGLOBIN A1C Routine 07/24/2024 2:28 AM RN NEW GRAD Type 2 diabetes mellitus without complication, without long-term current use of insulin from Last 3 Months or Most Recently Relevant to Health Maintenance Results * TROPONIN-I HIGH SENSITIVE REFLEX 1HOUR (11/22/2024 3:51 AM CDT) Troponin I High Sensitive 7 <=35 ng/L 11/22/2024 4:46 AM CDT [facility] Delta Troponin I HS 11/22/2024 4:46 AM CDT [facility] Comment:Delta value intentio edy not calculated. Baseline to 1 hour specimen collection interval exceeded. Blood BLOOD SPECIMEN / Unknown Venipuncture / Unknown 11/22/2024 3:51 AM CDT 11/22/2024 3:56 AM CDT us Veronica Giraldo GEOTHERMAL OPERATIONS MANAGER-HOME SERVICE ADVISOR LAB - CHEMISTRY VALERIA BEAN Final Result [facility] [address] [place] [phone], [facility] [phone] * (ABNORMAL) URINALYSIS REFLEX MICROSCOPIC REFLEX CULTURE (11/21/2024 9:27 PM CDT) Color UA Yellow Yellow, Straw 11/21/2024 10:00 PM [facility] Clarity UA Turbid(A) Clear 11/21/2024 10:00 PM [facility] Glucose UA Normal Normal 11/21/2024 10:00 PM [facility] Bilirubin UA Negative Negative 11/21/2024 10:00 PM [facility] Ketone UA Negative Negative 11/21/2024 10:00 PM [facility] Specific [place] UA 1.017 1.005 - 1.030 11/21/2024 10:00 PM [facility] Blood UA Negative Negative 11/21/2024 10:00 PM [facility] pH UA 7.5 5.0 - 8.0 pH 11/21/2024 10:00 PM [facility] Protein UA Negative Negative 11/21/2024 10:00 PM [facility] Urobilinogen UA Normal Normal mg/dL 11/21/2024 10:00 PM [facility] Nitrite UA Negative Negative 11/21/2024 10:00 PM [facility] Leukocyte UA Negative Negative 11/21/2024 10:00 PM [facility] Reflex Status Culture not indicated 11/21/2024 10:00 PM [facility] Urine URINE SPECIMEN OBTAINED BY CLEAN CATCH PROCEDURE / Unknown Collection / Unknown 11/21/2024 9:27 PM CDT 11/21/2024 9:32 PM CDT Veronica [facility]iral[facility] LAB - URINALYSIS ORD ERABLES Final Result Performing Organization Address City/[facility]/ZIP Co de Phone Number [facility] [place] [address] [place] [address], [facility] [phone] * EKG 12-LEAD (11/21/2024 9:26 PM CDT) Ventricular Rate 73 BPM [facility] Atrial Rate 73 BPM [facility] P-R Interval 178 ms [facility] QRS Duration ms 162 ms [facility] Q-T Interval ms 432 ms [facility] QTC Calculation (Bezet) 475 ms [facility] Calculated P [place] 47 degrees [facility] Calculated R [place] -68 degrees [facility] Calculated T [place] 39 degrees [facility] Interpretation EKG NORMAL SINUS RHYTHM RIGHT BUNDLE BRANCH BLOCK LEFT ANTERIOR FASCICULAR BLOCK BIFASCICULAR BLOCK MINIMAL VOLTAGE CRITERIA FOR LVH, MAY BE NORMAL VARIANT ( R in aVL ) ABNORMAL ECG WHEN COMPARED WITH ECG OF 20-AUG-2024 08:49, PREMATURE ATRIAL COMPLEXES ARE NO LONGER PRESENT Confirmed by KAPIL ALLEN MD ([id number]) on 11/22/2024 8:46:55 PM [facility] 11/21/2024 9:26 PM CDT 11/22/2024 8:46 PM CDT Veronica JIANGHOME SERVICE ADVISOR ECG ORDERABLES Edit ed Result - Final Performing Organization Address City/[facility]/ZIP Co de Phone Number [facility] * TROPONIN-I HIGH SENSITIVE BASELINE + 1HR (11/21/2024 9:26 PM CDT) Pathologist [facility] Troponin I High Sensitive 5 <=35 ng/L 11/21/2024 10:17 PM CDT [facility] Blood BLOOD SPECIMEN / Unknown Venipuncture / Unknown 11/21/2024 9:26 PM CDT 11/21/2024 9:46 PM CDT Veronica Angie Kleeman GEOTHERMAL OPERATIONS MANAGER-HOME SERVICE ADVISOR LAB - CHEMISTRY ORDE GENEVA Final Result [facility] [address] [place] [address], [facility] [phone] * CBC W AUTO DIFFERENTIAL (11/21/2024 9:26 PM [facility]) [facility] WBC 9.4 4.0 - 10.7 x10E9/L 11/21/2024 10:02 PM [facility] RBC Count 4.79 4.30 - 5.80 x10E12/L 11/21/2024 10:02 PM [facility] Hemoglobin 14.4 13.3 - 17.5 g/dL 11/21/2024 10:02 PM [facility] Hematocrit 41.6 38.7 - 51.1 % 11/21/2024 10:02 PM [facility] MCV 86.8 80.0 - 98.0 fL 11/21/2024 10:02 PM [facility] MCH 30.1 26.7 - 33.6 pg 11/21/2024 10:02 PM [facility] MCHC 34.6 31.7 - 36.3 g/dL 11/21/2024 10:02 PM [facility] RDW-CV 13.1 11.3 - 14.8 % 11/21/2024 10:02 PM [facility] Platelet Count 272 150 - 420 x10E9/L 11/21/2024 10:02 PM [facility] MPV 9.6 7.8 - 11.4 fL 11/21/2024 10:02 PM [facility] Neutrophil % 69.9 41.0 - 74.0 % 11/21/2024 10:02 PM [facility] Lymphocyte % 21.5 17.0 - 47.0 % 11/21/2024 10:02 PM [facility] Monocyte % 7.1 3.0 - 11.0 % 11/21/2024 10:02 PM [facility] Eosinophil % 1.0 0.0 - 7.0 % 11/21/2024 10:02 PM [facility] Basophil % 0.3 0.0 - 1.6 % 11/21/2024 10:02 PM [facility] Immature Granulocytes % 0.2 0.0 - 1.0 % 11/21/2024 10:02 PM [facility] Neutrophil Absolute 6.54 1.60 - 7.50 x10E9/L 11/21/2024 10:02 PM [facility] Lymphocyte Absolute 2.01 1.00 - 4.40 x10E9/L 11/21/2024 10:02 PM [facility] Monocyte Absolute 0.66 0.15 - 1.00 x10E9/L 11/21/2024 10:02 PM [facility] Eosinophil Absolute 0.09 0.00 - 0.60 x10E9/L 11/21/2024 10:02 PM [facility] Basophil Absolute 0.03 0.00 - 0.13 x10E9/L 11/21/2024 10:02 PM [facility] Blood BLOOD SPECIMEN / Unknown Venipuncture / Unknown 11/21/2024 9:26 PM CDT 11/21/2024 9:46 PM CDT us Veronica Giraldo GEOTHERMAL OPERATIONS MANAGER-HOME SERVICE ADVISOR LAB - HEMATOLOGY ORD ERABLES Final Result Performing Organization Address [facility]/State/ZIP Co de Phone Number [facility] [address] [place] [phone], [facility] [phone] * (ABNORMAL) COMPREHENSIVE METABOLIC PANEL (11/21/2024 9:26 PM CDT) BUN 13 7 - 26 mg/dL 11/21/2024 10:13 PM [facility] Creatinine 0.73 0.71 - 1.16 mg/dL 11/21/2024 10:13 PM [facility] Sodium 143 136 - 145 mmol/L 11/21/2024 10:13 PM [facility] Potassium 3.8 3.5 - 4.5 mmol/L 11/21/2024 10:13 PM [facility] Chloride 108(H) 98 - 107 mmol/L 11/21/2024 10:13 PM [facility] CO2 22 22 - 29 mmol/L 11/21/2024 10:13 PM [facility] Glucose 97 70 - 99 mg/dL 11/21/2024 10:13 PM [facility] Calcium 9.8 8.4 - 10.2 mg/dL 11/21/2024 10:13 PM [facility] Protein Total 7.3 6.0 - 8.3 g/dL 11/21/2024 10:13 PM [facility] Albumin 3.8 3.4 - 5.0 g/dL 11/21/2024 10:13 PM [facility] Bilirubin Total 0.6 0.2 - 1.2 mg/dL 11/21/2024 10:13 PM [facility] Alkaline Phosphatase 92 40 - 150 U/L 11/21/2024 10:13 PM [facility] ALT 26 5 - 55 U/L 11/21/2024 10:13 PM [facility] AST 24 5 - 34 U/L 11/21/2024 10:13 PM [facility] Anion Gap 13 6 - 16 11/21/2024 10:13 PM [facility] BUN/Creatinine Ratio 18 7 - 23 11/21/2024 10:13 PM [facility] Osmolality Calculated 296(H) 275 - 295 mOsm/kg 11/21/2024 10:13 PM [facility] Albumin/Globulin Ratio 1.1 1.1 - 2.3 11/21/2024 10:13 PM [facility] eGFR by CKD-EPI >90 >=90 mL/min/1.7 3 m2 11/21/2024 10:13 PM [facility] Blood BLOOD SPECIMEN / Unknown Venipuncture / Unknown 11/21/2024 9:26 PM T 11/21/2024 9:46 PM [facility] us Veronica Giraldo GEOTHERMAL OPERATIONS MANAGER-HOME SERVICE ADVISOR LAB - CHEMISTRY ORDE GENEVA Final Result [facility] [address] [place] [address], [facility] [phone] * CT Head Wo Contrast (11/21/2024 8:27 [...] evaluation. Report dictated by Sandro Lawson MD, (Playground Official). ILouie MD have personally reviewed and interpreted this examination/study. > Interpreting Provider: Louie Galarza MD on 11/21/2024 11:23 PM Narrative 11/21/2024 11:23 PM CDT PROCEDURE: CT HEAD WO CONTRAST, DATE/TIME OF EXAM: 11/21/2024 8:27 PM, LOCATION [facility] INDICATION: R42: Dizziness EXAMINATION: Computed tomography (CT) [...] DATE/TIME OF EXAM: 11/21/2024 8:27 PM, LOCATION [facility] INDICATION: R42: Dizziness EXAMINATION: Computed tomography (CT) [...] evaluation. Report dictated by Sandro Lawson MD, (Playground Official). Louie Lopez MD have personally reviewed and interpretedthis examination/study. > Interpreting Provider: Louie Galarza MD on 11/21/2024 11:23 PM Veronica Giraldo GEOTHERMAL OPERATIONS MANAGER-HOME SERVICE ADVISOR CT ORDERABLES Kendra l Result * XR CHEST 1VW PORTABLE (11/21/2024 8:01 PM CDT) Anatomical Region Laterality Modality Chest Digital Radiogra phy 11/21/2024 8:08 PM CDT Narrative 11/21/2024 10:30 PM CDT PROCEDURE: XR CHEST 1VW PORTABLE, DATE/TIME OF EXAM: 11/21/2024 8:01 PM, LOCATION [facility] INDICATION: R42: Dizziness ADDITIONAL CLINICAL INFORMATION: Ordering [...] hemidiaphragm. Report dictated by Sandro Lawson MD, (Playground Official). Charlie Lopez MD have personally reviewed and interpreted this examination/study. > Interpreting Provider: Charlie Leon MD on 11/21/2024 10:30 PM Procedure Note Charlie Leon MD - 11/21/2024 PROCEDURE: XR CHEST 1VW PORTABLE, DATE/TIME OF EXAM: 11/21/2024 8:01PM, LOCATION [facility] INDICATION: R42: Dizziness ADDITIONAL CLINICAL INFORMATION: Ordering [...] hemidiaphragm. Report dictated by Sandro Lawson MD, (Playground Official). I, Charlie Leon MD have personally reviewed and interpreted this examination/study. > Interpreting Provider: Charlie Leon MD on 11/21/2024 10:30 PM us Veronica Gomezgita Giraldo GEOTHERMAL OPERATIONS MANAGER-HOME SERVICE ADVISOR DIAGNOSTIC IMAGING O RDERABLES Final Result * SC ECG/REVIEW INTERPRET ONLY (10/13/2024 9:40 AM CDT) Narrative Chapito Puente MD - 10/13/2024 9:40 AM CDT Chapito Puente MD 10/13/2024 9:53 AM Read Date: 10/13/2024 Patient name: Alvaro Bui Patient : 1955 Patient Age: [age] year old EVENT MONITOR REPORT: Indication for placement: Non-sustained VT Requesting MD: Jill Ramirez Duration of monitorin days - 08/28/2024 to 09/26/2024 Available tracings are adequate for interpretation for 28d 9h 43min. 1. The fastest HR overall was: 172 bpm 2. The lowest HR noted was: 48 bpm 3. The average HR was: 70 bpm 4. 82,867 premature ventricular complexes (PVCs) occurred (3% of 2.8 million complexes). 80,078 premature atrial contractions (PACs) occurred 3% of the time. 5. No clear evidence of atrial fibrillation noted. On 08/28/2024, there was an episode of SVT that, at times, were irregular and was mislabeled as atrial fibrillation 6. No Pause(s) noted of 3 seconds or longer. Patient transmitted 2 manually-triggered recordings and reported no symptoms During these manually-triggered recordings sinus rhythm with occasional PAC and PVC swere noted. Other recordings demonstrated sinus rhythm with frequent episodes of SVT, up to 30 seconds in duration, as well as runs of non-sustained tachycardia up to 5-10 beats. SVT with aberration can not be ruled out. Final Interpretation: Frequent episodes of SVT, up to 30 seconds in duration, sometimes associated with prolonged QRS. No sustained VT was noted. No clear afib was noted. us Chapito Puente MD ECG ORDERABLES Final Result * CARDIAC PROCEDURE ORDER (09/21/2024) Only the most recent of3 resultswithin the time period is included. 09/21/2024 Narrative 09/21/2024 Ordered by an unspecified provider. us Scanned Document CARDIAC SERVICES ORDERABLES Fin al Result * (ABNORMAL) HEMOGLOBIN A1C (07/24/2024 2:28 AM RN NEW GRAD) Hemoglobin A1c 5.7(H) <=5.6 % 07/24/2024 10:10 AM [facility] Estimated Average Glucose 117 mg/dL 07/24/2024 10:10 AM [facility] Comment: HbA1c Interpretation: Normal : < 5.7% Pre-diabetes: 5.7-6.4% Diabetes: Equal to or greater than 6.5% Test results diagnostic of diabetes should be repeated for confirmation. Treatment target values recommended by ADA and other clinical organizations should be used to evaluate metabolic control in patients. Reference: [place] [employer], Standards of Care in Diabetes -2020 In patients 70 years and older consider HbA1c target range of 7.0-7.5% (Reference: Nickolas Ellis, et al. JAMDA. 2012) The Sebia assay for the measurement of HbA1c is a National Glycohemoglobin Standardization Program (NGSP) certified method. Blood BLOOD SPECIMEN / Unknown Lab Venipuncture / Unknown 07/24/2024 2:28 AM RN NEW GRAD 07/24/2024 3:05 AM RN NEW GRAD us Julio C Howard MD LAB - CHEMISTRY ORDERABLES F inal Result [facility] [address] [address], [facility] [phone] from Last 3 Months or Most Recently Relevant to Health Maintenance Insurance * Guarantor: Alvaro Bui Account Type Relation to Patient Date of Phone Billing Addr [id number]|2024-11-23 11:40:00|2024-11-23 11:39:00|XMS_ITS|RANDY ARMAS|External Medical Summaries|[id number]|" Clinical Summary Created on: November 23, 2024 Alvaro Bui : 1955 Sex: Male Author Organization [facility] Facility Address [address] [address] Care Team Providers Care Key Cutter Name Role Phone Davion Barnes MD Primary Care Provider Allergies No known active allergies Medications amLODIPine (NORVASC) 10 MG tablet Take 10 mg by mouth 1 (one) time each day 07/04/2021 Active aspirin (ST CLARY) 81 MG EC tablet Take 81 mg by mouth 1 (one) time each day 01/28/2019 Active atorvastatin (LIPITOR) 40 MG tablet Take 40 mg by mouth 1 (one) time each day 03/30/2019 Active losartan (COZAAR) 50 MG tablet Take 100 mg by mouth 1 (one) time each day 07/14/2021 Active metoprolol tartrate (LOPRESSOR) 50 MG tablet Take 50 mg by mouth in the morning and 50 mg in the evening. 03/30/2019 Active Dapagliflozin Propanediol 5 MG tablet Take 5 mg by mouth 1 (one) time each day 90 tablet 10/04/2022 Active cilostazol (PLETAL) 100 MG tablet Take 100 mg by mouth in the morning and 100 mg in the evening. Active Magnesium 400 MG capsule Take 400 mg by mouth 1 (one) time each day Active ticagrelor (BRILINTA) 90 MG tablet Take 90 mg by mouth in the morning and 90 mg in the evening. Active Active Problems Problem Noted Date Diagnosed Date Stage 1 chronic kidney disease 11/14/2021 Hyperlipidemia 11/13/2021 Gout 11/13/2021 Vitamin D deficiency 11/13/2021 Type 2 diabetes mellitus 11/13/2021 Coronary atherosclerosis 11/07/2021 Essential hypertension 11/07/2021 Nocturia 11/07/2021 Proteinuria 09/25/2021 Osteoarthritis 12/28/2015 Sleep apnea 12/27/2010 Obesity 07/06/2008 Encounters Date Type Department Care Team Description 09/24/2024 Documentation Only [place] [phone] Segun Jung MD 09/15/2024 10:00 AM CDT Office Visit [place] [facility] [address] [phone] Segun Jung MD Stage 1 chronic kidney disease (Primary Dx); Essential hypertension; Morbid (severe) obesity due to excess calories (HCC); Mixed hyperlipidemia; Type 2 diabetes mellitus, not otherwise specified (HCC); Vitamin D deficiency, not otherwise specified; Coronary atherosclerosis; Primary generalized osteoarthritis 09/08/2024 Orders Only [address] [phone] Segun Jung MD 08/31/2024 Documentation Only [address] [phone] Segun Jung MD from Last 3 Months Immunizations Immunization Administration Dates Next Due Influenza, Quadrivalent, With Preservative 06/28 Pfizer SARS-COV-2 09/15/2020,09/01/2020 Pneumococcal Conjugate 13-Valent 03/22/2020 Pneumococcal Polysaccharide 06/15/2021 Family History Medical History Relation Comments Cancer Brother Lung cancer Brother Heart disease Father Hypertension Father Stroke Father Cancer Mother Colon cancer Mother Diabetes Mother Uterine cancer Mother Relation Status Comments Brother Father Mother Social History Tobacco Use Types Packs/Day Years Used Date Smoking Tobacco: Never Smokeless Tobacco: Never Tobacco Cessation:Counseling Given: Not Answered Alcohol Use Standard Drinks/Week Comments Yes 0 (1 standard drink = 0.6 oz pur e alcohol) Sex and Gender Information Value Date Recorded Sex Assigned at Not on file Legal Sex Male 4:12 PM EDT Gender Identity Not on file Sexual Orientation Not on file Last Filed Vital Signs Vital Sign Reading Time Taken Comments Blood Pressure 130/80 09/15/2024 10:07 AM CDT Pulse 80 09/15/2024 10:07 AM CDT Temperature 36.1 C (97 F) 09/15/2024 10:07 AM CDT Respiratory Rate 18 09/15/2024 10:07 AM CDT Oxygen Saturation 97% 09/15/2024 10:07 AM CDT Inhaled Oxygen Concentration - - Weight 143 kg (315 lb) 09/15/2024 10:07 AM CDT Height 172.7 cm (5' 8 ) 09/10/2023 12:27 PM RN NEW [facility]AD Body Mass Index 47.9 09/10/2023 12:27 PM RN NEW GRAD Plan of Treatment Upcoming Encounters Date Type Department Care Team (Late st Contact Info) Description 03/23/2025 10:00 AM CDT Office Visit [facility], [facility] [address] [facility] [address] [place] [id number] Segun Jung MD [address] [facility] 1 [place] [address] Health Maintenance Due Date Last Done Comments Colorectal Cancer Screening: Annual FOBT 11/09/2003 Colorectal Cancer Screening: Colonoscopy 11/09/2003 Colorectal Cancer Screening: Sigmoidoscopy 11/09/2003 Hepatitis B Vaccine (1 of 3 - Risk 3-dose series) 2014 Diabetes: Ophthalmology Exam 09/26/2021 Diabetes: Pedal Pulse Checked 09/26/2021 Diabetes: Sensory Foot Exam 09/26/2021 Diabetes: Visual Foot Exam 09/26/2021 Diabetes: Hemoglobin A1C 12/09/2024 025, 07/24/2024, 07/23/2024, Additional history exists Pneumococcal Vaccine: 50+ Years Completed , 03/22/2020 Influenza Vaccine Completed 04/28/2024, 06/28/2020 Procedures Procedure Name Priority Date/Time Associated Diagnosis Comments NOTE Routine 09/08/2024 9:46 AM RN NEW GRAD URINALYSIS RFX MICROSCOPIC Routine 09/08/2024 9:46 AM RN NEW GRAD HEMOGLOBIN A1C Routine 09/08/2024 9:46 AM RN NEW GRAD PROTEIN / CREATININE RATIO, URINE Routine 09/08/2024 9:46 AM RN NEW GRAD VITAMIN D 25 HYDROXY Routine 09/08/2024 9:46 AM RN NEW GRAD CBC AND DIFFERENTIAL Routine 09/08/2024 9:46 AM RN NEW GRAD COMPREHENSIVE METABOLIC PANEL Routine 09/08/2024 9:46 AM RN NEW GRAD PHOSPHATE ( PHOSPHORUS) Routine 09/08/2024 9:46 AM RN NEW [facility]AD LIPID PANEL Routine 09/08/2024 9:46 AM RN NEW GRAD PTH, INTACT AND CALCIUM Routine 09/08/2024 9:46 AM RN NEW GRAD from Last 3 Months Results * NOTE (09/08/2024 9:46 AM RN NEW GRAD) Note: See order comments Comment: This urine was analyzed for the presence of WBC, RBC, bacteria, casts, and other formed elements. Only those elements seen were reported. 09/08/2024 9:46 AM RN NEW GRAD 09/08/2024 9:50 AM RN NEW GRAD Narrative [facility] - 09/09/2024 10:31 AM RN NEW GRAD FASTING:YES FASTING: YES Resulting Agency Comment Performing Organization Information: Site ID: [place] Name: [facility] Address: [address] [address] Director: Gillian Mendoza MD us Segun Jung MD LAB [id number] NSOLICITED RESULTS Final Result [facility] See order comments [place] [address] * PTH, Intact and Calcium (09/08/2024 9:46 AM RN NEW GRAD) Parathyroid Hormone, Intact 22 16 - 77 pg/mL See order comments Comment: Interpretive Guide Intact PTH Calcium ------- Normal Parathyroid Normal Normal Hypoparathyroidism Low or Low Normal Low Hyperparathyroidism Primary Normal or High High Secondary High Normal or Low Tertiary High High Non-Parathyroid Hypercalcemia Low or Low Normal High Calcium 9.2 8.6 - 10.3 mg/dL See order comments 09/08/2024 9:4 6 AM RN NEW GRAD 09/08/2024 9:50 AM RN NEW GRAD Narrative [facility] - 09/09/2024 10:31 AM RN NEW GRAD FASTING:YES FASTING: YES Resulting Agency Comment Performing Organization Information: Site ID: [place] Name: [facility] Address: [address] [place] [phone] Director: Gillian Mendoza MD Segun Jung MD LAB BLOOD ORDERABLES Final R esult [facility] See order comments [place] [address] * Protein, Total, Random Urine w/Creatinine (Protein/Creat Ratio) (09/08/2024 9:46 AM RN [facility] GRAD) Creatinine, Ur 140 20 - 320 mg/dL See order comments Urine Protein/Creatin ine Ratio 100 25 - 148 mg/g creat See order comments Protein/Creatin ine Ratio, Urine 0.100 0.025 - 0.148 mg/mg creat See order comments Protein Urine Random 14 5 - 25 mg/dL See order comments 09/08/2024 9:46 AM RN NEW GRAD 09/08/2024 9:50 AM RN NEW GRAD N[facility]ative [facility] - 09/09/2024 10:31 AM RN NEW GRAD FASTING:YES FASTING: YES Resulting Agency Comment Performing Organization Information: Site ID: [place] Name: [id number] Address: [address] [place] [phone] Director: Gillian Mendoza MD us Segun Jung MD LAB URINE ORDERABLES Final R esult [facility] See order comments [place] [address] * (ABNORMAL) Urinalysis Reflex Microscopic (09/08/2024 9:46 AM RN [facility]AD) Color, Urine YELLOW YELLOW See ord er comments Appearance Urine CLEAR CLEAR See order comments Specific [place], UA 1.022 1.001 - 1.035 See order comments pH Urine 6.0 5.0 - 8.0 See order comments Glucose, Ur NEGATIVE NEGATIVE See orde r comments Bilirubin, Urine NEGATIVE NEGATIVE See order comments Ketones, Urine NEGATIVE NEGATIVE See o rder comments Hemoglobin Ur Ql Strip 1+(A) NEGATIVE See order comments Protein, Ur NEGATIVE NEGATIVE See orde r comments Nitrite, Urine NEGATIVE NEGATIVE See o rder comments WBC Esterase Urine NEGATIVE NEGATIVE See order comments WBC, Urine NONE SEEN < OR = 5 /HPF See order comments RBC, Urine 3-10(A) < OR = 2 /HPF See order comments Epithelial Cells in Urine 0-5 < OR = 5 /HPF See order comments Trans Epithelial, Urine CANCELED < OR = 5 /HPF See order comments Comment:Result canceled by t he ancillary. Renal Epithelial Cells, Urine CANCELED < OR = 3 /HPF See order comments Comment:Result canceled by t he ancillary. Bacteria NONE SEEN NONE SEEN /HPF See order comments Calcium Oxalate Crystals, Urine CANCELED NONE OR FEW /HPF See order comments Comment:Result canceled by t he ancillary. Triple Phosphate Crystals, Urine CANCELED NONE OR FEW /HPF See order comments Comment:Result canceled by t he ancillary. Uric Acid Crystals, Urine CANCELED NONE OR FEW /HPF See order comments Comment:Result canceled by t he ancillary. Amorphous Sediments CANCELED NONE OR FEW /HPF See order comments Comment:Result canceled by t he ancillary. Crystals CANCELED NONE SEEN /HPF See order comments Comment:Result canceled by t he ancillary. Hyaline Casts, Urine NONE SEEN NONE SEEN /LPF See order comments Granular Casts, Urine CANCELED NONE SEEN /LPF See order comments Comment:Result canceled by t he ancillary. Casts CANCELED NONE SEEN /LPF See order comments Comment:Result canceled by t he ancillary. Yeast, UA CANCELED NONE SEEN /HPF See order comments Comment:Result canceled by t he ancillary. Comments CANCELED See order comments Comment:Result canceled by t he ancillary. 09/08/2024 9:46 AM RN NEW GRAD 09/08/2024 9:50 AM RN NEW GRAD Narrative [facility] - 09/09/2024 10:31 AM RN NEW GRAD FASTING:YES FASTING: YES Resulting Agency Comment Performing Organization Information: Site ID: GENI Name: [facility] Address: [address] [place] [address] Director: Gillian Mendoza MD us Segun Jung MD LAB URINE ORDERABLES Final R esult [facility] See order comments [place] [address] * Vitamin D 25 Hydroxy (09/08/2024 9:46 AM RN NEW GRAD) Vitamin D, 25-OH, Total, IA 54 30 - 100 ng/mL See order comments Comment: Vitamin D Status 25-OH Vitamin D: Deficiency: <20 ng/mL Insufficiency: 20 - 29 ng/mL Optimal: > or = 30 ng/mL For 25-OH Vitamin D testing on patients on D2-supplementation and patients for whom quantitation of D2 and D3 fractions is required, the QuestAssureD(TM) 25-OH VIT D, (D2,D3), LC/MS/MS is recommended: order code 11459 (patients >2yrs). See Note 1 Note 1 For additional information, please refer to http://education.[employer]/faq/MTM701 (This link is being provided for informational/ educational purposes only.) 09/08/2024 9:46 AM RN NEW GRAD 09/08/2024 9:50 AM RN NEW GRAD Narrative [facility] - 09/09/2024 10:31 AM RN NEW GRAD FASTING:YES FASTING: YES Resulting Agency Comment Performing Organization Information: Site ID: GENI Name: [facility] Address: [address] [place] [address] Director: Gillian Mendoza MD us Segun Jung MD LAB BLOOD ORDERABLES Final R esult [facility] See order comments [place] [address] * CBC and Differential (09/08/2024 9:46 AM RN NEW GRAD) WBC 5.2 3.8 - 10.8 Thousand/ uL See order comments RBC 4.44 4.20 - 5.80 Million/u L See order comments Hemoglobin 14.0 13.2 - 17.1 g/dL See order comments Hematocrit 42.4 38.5 - 50.0 % See order comments MCV 95.5 80.0 - 100.0 fL See order comments MCH 31.5 27.0 - 33.0 pg See order comments MCHC 33.0 32.0 - 36.0 g/dL See order comments Comment: For adults, a slight decrease in the calculated MCHC value (in the range of 30 to 32 g/dL) is most likely not clinically significant; however, it should be interpreted with caution in correlation with other red cell parameters and the patient's clinical condition. RDW 13.4 11.0 - 15.0 % See order comments Platelets 288 140 - 400 Thousand/ uL See order comments MPV 10.6 7.5 - 12.5 fL See order comments Neutrophils Absolute 3,188 1,500 - 7,800 cells/uL See order comments Band Neutrophils Absolute, Manual Count CANCELED 0 - 750 cells/uL See order comments Comment:Result canceled by t he ancillary. Metamyelocytes Absolute CANCELED 0 cells/uL See order comments Comment:Result canceled by t he ancillary. Absolute Myelocytes CANCELED 0 cells/uL See order comments Comment:Result canceled by t he ancillary. Absolute Promyelocytes CANCELED 0 cells/uL See order comments Comment:Result canceled by t he ancillary. Lymphocytes Absolute 1,368 850 - 3,900 cells/uL See order comments Monocytes Absolute 452 200 - 950 cells/uL See order comments Eosinophils Absolute 161 15 - 500 cells/uL See order comments Basophils Absolute 31 0 - 200 cells/uL See order comments Blasts Absolute CANCELED 0 cells/uL See order comments Comment:Result canceled by t he ancillary. NRBC Absolute CANCELED 0 cells/uL See order comments Comment:Result canceled by t he ancillary. Neutrophils Relative 61.3 % See order comments Bands Absolute CANCELED % See o rder comments Comment:Result canceled by t he ancillary. Metamyelocytes Percent CANCELED % See order comments Comment:Result canceled by t he ancillary. Myelocytes Relative CANCELED % See order comments Comment:Result canceled by t he ancillary. Promyelocytes Relative CANCELED % See order comments Comment:Result canceled by t he ancillary. Lymphocytes 26.3 % See orde r comments Variant lymphocytes/100 WBC (Bld) CANCELED 0 - 10 % See order comments Comment:Result canceled by t he ancillary. Monocytes 8.7 % See order comments Eosinophils 3.1 % See orde r comments Basophils Relative 0.6 % S ee order comments Blasts CANCELED % See order comments Comment:Result canceled by t he ancillary. nRBC CANCELED 0 /100 WBC See order comments Comment:Result canceled by t he ancillary. Comment(s) CANCELED See order comments Comment:Result canceled by t he ancillary. 09/08/2024 9:46 AM RN NEW GRAD 09/08/2024 9:50 AM RN NEW GRAD Narrative [facility] - 09/09/2024 10:31 AM RN NEW GRAD FASTING:YES FASTING: YES Resulting Agency Comment Performing Organization Information: Site ID: [place] Name: [facility] Address: [id number] [place], [place] [address] [address] Director: Gillian Mendoza MD us Segun Jugn MD LAB BLOOD ORDERABLES Final R esult [facility] See order comments [place] [address] * Phosphorus (09/08/2024 9:46 AM RN NEW GRAD) Phosphorus 3.1 2.1 - 4.3 mg/dL See order comments 09/08/2024 9:46 AM RN NEW GRAD 09/08/2024 9:50 AM RN NEW GR[facility] Narrative [facility] - 09/09/2024 10:31 AM RN NEW GRAD FASTING:YES FASTING: YES Resulting Agency Comment Performing Organization Information: Site ID: [place] Name: [facility] Address: [address] [address] Director: Gillian Mendoza MD Segun Jung MD LAB BLOOD ORDERABLES Final R esult Performing Organization Address City/[facility]/ZIP Co de Phone Number [facility] See order comments [place] [address] * (ABNORMAL) Hemoglobin A1c (09/08/2024 9:46 AM RN NEW GRAD) Hemoglobin A1C 5.7(H) <5.7 % of total Hgb See order comments Comment: For someone without known diabetes, a hemoglobin A1c value between 5.7% and 6.4% is consistent with prediabetes and should be confirmed with a follow-up test. For someone with known diabetes, a value <7% indicates that their diabetes is well controlled. A1c targets should be individualized based on duration of diabetes, age, comorbid conditions, and other considerations. This assay result is consistent with an increased risk of diabetes. Currently, no consensus exists regarding use of hemoglobin A1c for diagnosis of diabetes for children. 09/08/2024 9:46 AM RN NEW GRAD 09/08/2024 9:50 AM RN NEW GRAD Narrative [facility] - 09/09/2024 10:31 AM RN NEW GRAD FASTING:YES FASTING: YES Resulting Agency Comment Performing Organization Information: Site ID: Name: [facility] Address: [address] [address] Director: Gillian Mendoza Segun Jung MD LAB BLOOD ORDERABLES Final R esult [facility] See order comments [place] [address] * (ABNORMAL) Lipid panel (09/08/2024 9:46 AM RN NEW GRAD) Cholesterol 106 <200 mg/dL See ord er comments HDL 37(L) > OR = 40 mg/dL See order comments Triglycerides 106 <150 mg/dL See o rder comments LDL Direct 50 mg/dL (calc) See order comments Comment: Reference range: <100 Desirable range <100 mg/dL for primary prevention; <70 mg/dL for patients with CHD or diabetic patients with > or = 2 CHD risk factors. LDL-C is now calculated using the Iris calculation, which is a validated novel method providing better accuracy than the Friedewald equation in the estimation of LDL-C. Gilberto KRISHNAMURTHY et al. RUTHIE. 2013;310(19): 6822-6665 (http://education.[employer]/faq/EZX316) Chol/HDL Ratio 2.9 <5.0 (calc) See order comments Non HDL Cholesterol 69 <130 mg/dL (calc) See order comments Comment: For patients with diabetes plus 1 major ASCVD risk factor, treating to a non-HDL-C goal of <100 mg/dL (LDL-C of <70 mg/dL) is considered a therapeutic option. 09/08/2024 9:46 AM RN NEW GRAD 09/08/2024 9:50 AM RN NEW GRAD Narrative [facility] - 09/09/2024 10:31 AM RN NEW GRAD FASTING:YES FASTING: YES Resulting Agency Comment Performing Organization Information: Site ID: [place] Name: [facility] Address: [address] [address] Director: Gillian Mendoza MD Segun Jung MD LAB BLOOD ORDERABLES Final R esult [facility] See order comments [place] [address] * (ABNORMAL) Comprehensive Metabolic Panel (09/08/2024 9:46 AM RN NEW GRAD) Glucose 109(H) 65 - 99 mg/dL See order comments Comment: Fasting reference interval For someone without known diabetes, a glucose value between 100 and 125 mg/dL is consistent with prediabetes and should be confirmed with a follow-up test. BUN 14 7 - 25 mg/dL See order comments Creatinine 0.83 0.70 - 1.35 mg/dL See order comments eGFR CKD-EPI CR 2020 95 > OR = 60 mL/min/1. 73m2 See order comments BUN/Creatinine Ratio SEE NOTE: 6 - 22 (calc) See order comments Comment: Not Reported: BUN and Creatinine are within reference range. Sodium 142 135 - 146 mmol/L See order comments Potassium 3.8 3.5 - 5.3 mmol/L See order comments Chloride 108 98 - 110 mmol/L See order comments Bicarbonate (CO2) 28 20 - 32 mmol/L See order comments Calcium 9.2 8.6 - 10.3 mg/dL See order comments Total Protein 6.4 6.1 - 8.1 g/dL See order comments Albumin 4.0 3.6 - 5.1 g/dL See order comments Globulin, Total 2.4 1.9 - 3.7 g/dL (calc) See order comments A/G Ratio 1.7 1.0 - 2.5 (calc) See order comments Total Bilirubin 0.5 0.2 - 1.2 mg/dL See order comments Alkaline Phosphatase 66 35 - 144 U/L See order comments AST (SGOT) 17 10 - 35 U/L See order comments ALT (SGPT) 20 9 - 46 U/L See order comments 09/08/2024 9:46 AM RN NEW GRAD 09/08/2024 9:50 AM RN NEW GRAD Narrative [facility] - 09/09/2024 10:31 AM RN NEW GRAD FASTING:YES FASTING: YES Resulting Agency Comment Performing Organization Information: Site ID: [place] Name: [facility] Address: [address] [place] [address] [place] [address] Director: Gillian Mendoza MD us Segun Jung MD LAB BLOOD ORDERABLES Final R esult [facility] See order comments [place] [address] from Last 3 Months Insurance [facility] Medicare Care Teams Key Cutter Relationship Specialty Start Date End Date Davion Barnes MD [address] [place] [address] PCP - General Cardiology 08/14/22 "
--- OUTSIDE RECORDS SUMMARY | 2024-11-23 11:40 | XMS_ITS | Encounter Summary ---
Author Organization [facility] Address [address] [place], [place] [address] [place] [address] Phone Care Team Providers Care Denture Technician Name Role Phone Davion Barnes MD Primary Care Provider [phone] Reason for Visit * Reason Comments Med Refill Encounter Details Date Type Department Care Team (Late st Contact Info) Description 07/03/2022 Refill [facility], [address] [place] [address] Segun Jung MD [address] [facility] 1 [place] [address] Social History Tobacco Use Types Packs/Day Years Used Date Smoking Tobacco: Never Alcohol Use Standard Drinks/Week Comments Yes 0 [...] Department Care Team (Late Contact Info) Description 03/23/2025 10:00 AM CDT Office Visit [facility] [address] [facility] 15 [place] [address] Segun Jung MD [address] [facility] 1 [place] [address] documented as of this encounter Visit Diagnoses Not on filedocumented in this encounter Care Teams Denture Technician Relationship Specialty Start Date End Date Davion Barnes MD [address] [place] [address] PCP - General Cardiology 08/14/22 documented as of this encounter
--- OUTSIDE RECORDS SUMMARY | 2024-11-23 11:40 | XMS_ITS | Encounter Summary ---
Author Organization [facility] Address [address] [place], [place] [address] [place] [address] Phone Care Team Providers Care Implementation Analyst Name Role Phone Davion Barnes MD Primary Care Provider [phone] Reason for Visit * Reason Comments Med Refill Encounter Details Date Type Department Care Team (Late st Contact Info) Description 07/03/2022 Refill [facility], [address] [place] [address] Segun Jung MD [address] [facility] 1 [place] [address] Social History Tobacco Use Types [...] Description 03/23/2025 10:00 AM CDT Office [facility] [address] [facility] 15 [place] [address] Segun Jung MD [address] [facility] 1 [place] [address] documented as of this encounter Visit Diagnoses Not on filedocumented in this encounter Care Teams Implementation Analyst Relationship Specialty Start Date End Date Davion Barnes MD [address] [place] [address] PCP - General Cardiology 08/14/22 documented as of this encounter
--- NOTE | 2024-11-23 13:08 | ECG_ITS ---
Test Date: 2024-11-23 13:39:41 Measurements Intervals [place] Rate: 65 P: 42 MS: 212 QRS: -65 QRSD: 174 T: 19 QT: 442 QTc: 463 Interpretive Statements SINUS RHYTHM WITH FIRST DEGREE AV BLOCK RIGHT BUNDLE BRANCH BLOCK [120+ ms QRS DURATION, UPRIGHT V1, 40+ ms S IN I/aVL/V4/V5/V6] LEFT ANTERIOR FASCICULAR BLOCK [QRS AXIS <= -45, QR IN I, RS IN II] No previous ECG available for comparison Electronically Signed On 11-24-2024 13:23:10 CDT by Celine Mccain M.D.
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
[2024-11-23 13:24] VITALS: BP 125/46; PULSE 67; RESP 20; O2SAT 99
[2024-11-23 13:35] LABS: Basophils Percent Auto 0.5 % (0.2-1.2); Eosinophils Absolute Auto 0.1 K/mm3 (0-0.3); Eosinophils Percent Auto 1.2 % (0-4.4); Hematocrit 45.2 % (42.0-52.0); Hemoglobin 14.7 g/dL (14.0-18.0); Immature Granulocyte Absolute 0.02 K/mm3 (0.00-0.031); Immature Granulocyte Percent A 0.3 % (0-0.5); Lymphocytes Absolute Auto 1.28 K/mm3 (0.9-3.2); Lymphocytes Percent Auto 16.7 % (18.3-44.2); Mean Corpuscular HGB Conc 32.5 g/dl (32-36); Mean Corpuscular Hemoglobin 29.8 pg (26-34); Mean Corpuscular Volume 91.7 fl (80-100); Mean Platelet Volume 9.7 fl (7.4-10.4); Monocytes Absolute Auto 0.7 K/mm3 (0.1-0.6); Monocytes Percent Auto 8.6 % (2.6-8.5); Neutrophils Absolute Auto 5.6 K/mm3 (1.3-6.7); Neutrophils Percent Auto 72.7 % (45.5-73.1); Platelet Count Result 265 k/mm3 (150-375); Red Blood Count 4.93 M/mm3 (4.6-6.20); Red Cell Distribution Width 13.3 % (11.5-14.5); White Blood Count 7.7 K/mm3 (4.5-10.0)
[2024-11-23 13:38] LABS: Alanine Aminotransferase 30 U/L (6-50); Albumin Level 4.3 g/dL (3.5-5.1); Alkaline Phosphatase 91 U/L (38-126); Anion Gap 8 mmol/L (4-12); Aspartate Amino Transferase 39 U/L (17-59); Bilirubin,Total 0.7 mg/dL (0.2-1.3); Blood Urea Nitrogen 15 mg/dL (9-20); Calcium 9.4 mg/dL (8.4-10.2); Carbon Dioxide 27 mmol/L (22-30); Chloride 107 mmol/L (98-107); Estimated CRCL calculation 105 ml/min; Estimated Glomerular Filt Rate > 60; Glucose 104 mg/dL (65-110); Sodium 142 mmol/L (137-145)
--- OUTSIDE RECORDS SUMMARY | 2024-11-23 13:52 | XMS_ITS | Clinical Summary ---
Author Organization [facility] [employer] Address [address] [place] [address] Care Team Providers Care Inspector Rubber Stamp Die Name Role Phone Leila Cespedes MD Primary Care Provider Source Comments [facility],non-owned Affiliates and Associated Physician Practices is amultiple site organization consisting of ambulatory clinics and hospital sitesin [place], [place], [place] and [place]. This disclosure is being madepursuant to the Care Everywhere program and may not contain all information available regarding this patient. Last updated 18.[facility] [employer] Allergies No known active allergies Medications * [...] CDT - 11/22/2024 5:37 PM CDT Emergency [facility] EM[facility]GENCY DEPARTMENT [address] [place] [address] Dizziness Discharge Disposition: Left Against Medical Advice/Discontinued Care 11/21/2024 Travel 10/20/2024 Telephone [facility] - Cardiology [address] [facility], [address] [id number] Aliya Henriquez MD Results 10/07/2024 Telephone [facility] Cardiology [address] [facility], [facility] [address] [place] [phone] Aliya Henriquez MD Results from Last 3 [...] Recorded Patient Health Questionnaire-2 Score 0 07/26/2024 [facility] of Occupat ional Health - Occupational Stress [...] any time in the past 12 m [facility], were you homeless or living in a fpc (including now)? No 08/22/2024 Sex and Gender Information Value Date Recorded Sex Assigned at Not on file Legal Sex Male 6:59 AM MONKEY TRAINER Gender Identity Not on file Sexual Orientation [...] Office Visit [facility] - Neurology [address] [place] [address], [place] [phone] Radha Gloria MD [address] [place] [address] [place] [phone] Health Maintenance Due Date Last Done Comments [...] PORTABLE STAT 11/21/2024 8:01 PM CDT Dizziness OR ECG/REVIEW INTERPRET ONLY Routine 10/13/2024 9:40 AM CDT Ventricular tachycardia (paroxysmal) (HCC) CARDIAC PROCEDURE ORDER 09/21/2024 CARDIAC PROCEDURE ORDER 08/31/2024 CARDIAC PROCEDURE ORDER 08/28/2024 HEMOGLOBIN A1C Routine 07/24/2024 2:28 AM MONKEY TRAINER Type 2 diabetes mellitus without complication, without long-term current use of insulin from Last 3 Months or Most Recently Relevant to Health Maintenance Results * TROPONIN-I HIGH SENSITIVE REFLEX 1HOUR (11/22/2024 3:51 AM CDT) Troponin I High Sensitive 7 <=35 ng/L 11/22/2024 4:46 AM CDT [facility] Delta Troponin I HS 11/22/2024 4:46 AM CDT [facility] Comment:Delta value intentio edy not calculated. Baseline to 1 hour specimen collection interval exceeded. Blood BLOOD SPECIMEN / Unknown Venipuncture / Unknown 11/22/2024 3:51 AM CDT 11/22/2024 3:56 AM CDT us Veronica Giraldo TRAFFIC RATE COMPUTER-ROAD INSPECTOR LAB - CHEMISTRY VALERIA BEAN Final Result [facility] [address] [place] [phone], [facility] [phone] * (ABNORMAL) URINALYSIS REFLEX MICROSCOPIC REFLEX CULTURE (11/21/2024 9:27 PM CDT) Color UA Yellow Yellow, Straw 11/21/2024 10:00 PM [facility] Clarity UA Turbid(A) Clear 11/21/2024 10:00 PM [facility] Glucose UA Normal Normal 11/21/2024 10:00 PM [facility] Bilirubin UA Negative Negative 11/21/2024 10:00 PM [facility] Ketone UA Negative Negative 11/21/2024 10:00 PM [facility] Specific [place] UA 1.017 1.005 - 1.030 11/21/2024 10:00 [...] CDT 11/21/2024 9:32 PM CDT Veronica [facility]iral[facility] - URINALYSIS ORD ERABLES Final Result Performing Organization Address City/[facility]/ZIP Co de Phone Number [facility] [place] [address] [place] [address], [facility] [phone] * EKG 12-LEAD (11/21/2024 9:26 PM CDT) Ventricular Rate 73 BPM [facility] MUSE Atrial Rate 73 BPM [facility] MUSE P-R Interval 178 ms [facility] M[facility] QRS Duration ms 162 ms [facility] MUSE Q-T Interval ms 432 ms [facility] MUSE QTC Calculation (Bezet) 475 ms [facility] MUSE Calculated P [place] 47 degrees [facility] MUSE Calculated R [place] -68 degrees [facility] MUSE Calculated T [place] 39 degrees [facility] MUSE Interpretation EKG NORMAL SINUS RHYTHM RIGHT BUNDLE BRANCH BLOCK LEFT ANTERIOR FASCICULAR BLOCK BIFASCICULAR BLOCK MINIMAL VOLTAGE CRITERIA FOR LVH, MAY BE NORMAL VARIANT ( R in aVL ) ABNORMAL ECG WHEN COMPARED WITH ECG OF 20-AUG-2024 08:49, PREMATURE ATRIAL COMPLEXES ARE NO LONGER PRESENT Confirmed by KAPIL ALLEN MD ([id number]) on 11/22/2024 8:46:55 PM [facility] 11/21/2024 9:26 PM CDT 11/22/2024 8:46 PM CDT Veronica JIANGROAD INSPECTOR ECG ORDERABLES Edit ed Result - Final Performing Organization Address City/[facility]/ZIP Co de Phone Number [facility] * TROPONIN-I HIGH SENSITIVE BASELINE + 1HR (11/21/2024 9:26 PM CDT) Pathologist [facility] Troponin I High Sensitive 5 <=35 ng/L 11/21/2024 10:17 PM CDT [facility] Blood BLOOD SPECIMEN / Unknown Venipuncture / Unknown 11/21/2024 9:26 PM CDT 11/21/2024 9:46 PM CDT Veronica Angie Kleeman TRAFFIC RATE COMPUTER-ROAD INSPECTOR LAB - CHEMISTRY ORDE GENEVA Final Result [facility] [address] [place] [address], [facility] [phone] * CBC W AUTO DIFFERENTIAL (11/21/2024 9:26 PM [facility]) [facility] WBC 9.4 4.0 - 10.7 x10E9/L 11/21/2024 [...] 0.0 - 7.0 % 11/21/2024 10:02 PM [facility] Basophil % 0.3 0.0 - 1.6 [...] 11/21/2024 9:46 PM CDT us Veronica Giraldo TRAFFIC RATE COMPUTER-ROAD INSPECTOR LAB - HEMATOLOGY ORD ERABLES Final Result Performing Organization Address [facility]/State/ZIP Co de Phone Number [facility] [address] [place] [phone], [facility] [phone] * (ABNORMAL) COMPREHENSIVE METABOLIC PANEL (11/21/2024 9:26 [...] 11/21/2024 9:26 PM T 11/21/2024 9:46 PM [facility] us Veronica Giraldo TRAFFIC RATE COMPUTER-ROAD INSPECTOR LAB - CHEMISTRY ORDE GENEVA Final Result [facility] [address] [place] [address], [facility] [phone] * CT Head Wo Contrast (11/21/2024 8:27 [...] evaluation. Report dictated by Sandro Lawson MD, (Gripper Machine Operator). ILouie MD have personally reviewed and interpreted this examination/study. > Interpreting Provider: Louie Galarza MD on 11/21/2024 11:23 PM Narrative 11/21/2024 11:23 PM CDT PROCEDURE: CT HEAD WO CONTRAST, DATE/TIME OF EXAM: 11/21/2024 8:27 PM, LOCATION [facility] INDICATION: R42: Dizziness EXAMINATION: Computed tomography (CT) [...] DATE/TIME OF EXAM: 11/21/2024 8:27 PM, LOCATION [facility] INDICATION: R42: Dizziness EXAMINATION: Computed tomography (CT) [...] evaluation. Report dictated by Sandro Lawson MD, (Gripper Machine Operator). Louie Lopez MD have personally reviewed and interpretedthis examination/study. > Interpreting Provider: Louie Galarza MD on 11/21/2024 11:23 PM Veronica Giraldo TRAFFIC RATE COMPUTER-ROAD INSPECTOR CT ORDERABLES Kendra l Result * XR CHEST 1VW PORTABLE (11/21/2024 8:01 PM CDT) Anatomical Region Laterality Modality Chest Digital Radiogra phy 11/21/2024 8:08 PM CDT Narrative 11/21/2024 10:30 PM CDT PROCEDURE: XR CHEST 1VW PORTABLE, DATE/TIME OF EXAM: 11/21/2024 8:01 PM, LOCATION [facility] INDICATION: R42: Dizziness ADDITIONAL CLINICAL INFORMATION: Ordering [...] hemidiaphragm. Report dictated by Sandro Lawson MD, (Gripper Machine Operator). Charlie Lopez MD have personally reviewed and interpreted this examination/study. > Interpreting Provider: Charlie Leon MD on 11/21/2024 10:30 PM Procedure Note Charlie Leon MD - 11/21/2024 PROCEDURE: XR CHEST 1VW PORTABLE, DATE/TIME OF EXAM: 11/21/2024 8:01PM, LOCATION [facility] INDICATION: R42: Dizziness ADDITIONAL CLINICAL INFORMATION: Ordering [...] hemidiaphragm. Report dictated by Sandro Lawson MD, (Gripper Machine Operator). I, Charlie Leon MD have personally reviewed and interpreted this examination/study. > Interpreting Provider: Charlie Leon MD on 11/21/2024 10:30 PM us Veronica Gomezgita Giraldo TRAFFIC RATE COMPUTER-ROAD INSPECTOR DIAGNOSTIC IMAGING O RDERABLES Final Result * OR ECG/REVIEW INTERPRET ONLY (10/13/2024 9:40 AM CDT) [...] * (ABNORMAL) HEMOGLOBIN A1C (07/24/2024 2:28 AM MONKEY TRAINER) Hemoglobin A1c 5.7(H) <=5.6 % 07/24/2024 10:10 AM [facility] Estimated Average Glucose 117 mg/dL 07/24/2024 10:10 AM [facility] Comment: HbA1c Interpretation: Normal : < 5.7% Pre-diabetes: 5.7-6.4% Diabetes: Equal to or greater than 6.5% Test results diagnostic of diabetes should be repeated for confirmation. Treatment target values recommended by ADA and other clinical organizations should be used to evaluate metabolic control in patients. Reference: [place] [employer], Standards of Care in Diabetes -2020 In patients 70 years and older consider HbA1c target range of 7.0-7.5% (Reference: Nickolas Waterman, et al. JAMDA. 2012) The Sebia assay for the measurement of HbA1c is a National Glycohemoglobin Standardization Program (NGSP) certified method. Blood BLOOD SPECIMEN / Unknown Lab Venipuncture / Unknown 07/24/2024 2:28 AM MONKEY TRAINER 07/24/2024 3:05 AM MONKEY TRAINER us Julio C Howard MD LAB - CHEMISTRY ORDERABLES F inal Result [facility] [address] [address], [facility] [phone] from Last 3 Months or Most Recently Relevant to Health Maintenance Insurance * Guarantor: Alvaro Bui Account Type Relation to Patient Date of Phone Billing Addr [id number]|2024-11-23 13:53:00|2024-11-23 13:52:00|XMS_ITS|JAYSHREEG PAWEL|External Medical Summaries|[id number]|" Data Portability Created on: November 23, 2024 Alvaro Bui .[id number] : 1955 Sex: Male Author Organization [place] [facility] [place], Main Office Address [address] [place] [id number] Care Team Providers Care Inspector Rubber Stamp Die Name Role Phone VIVIAN CANALES Medical Device Sales Consultant SAM BAIRES General Surgeon JAMAAL FLORENTINO Wiping Rag Washer SIMON BARNES Air Box Tester LEILA CESPEDES Primary Care Provider RADHA GLORIA Neurologist SEGUN FRANKLIN Rubber Covering Machine Operator Assessment Encounter Date Assessment Date Assessment LastModified by Organization Details LastModified Time 06/02/2024 06/02/2024 02/07/2023: PSA 0.61 09/06/2023: A1C 6.0 Gluc 117 TG 151 09/10/2023: ALT/AST 64/50 GGT: Neg 10/15/2023: Hep panel: Neg 03/12/2024: Dr Montiel K 3.3, Gluc 129 A1C 6.0 03/17/2024: K 3.8 rehan Not available 06/02/2024 14:39:24 07/21/2024 07/21/2024 02/07/2023: PSA 0.61 09/06/2023: A1C 6.0 Gluc 117 TG 151 09/10/2023: ALT/AST 64/50 GGT: Neg 10/15/2023: Hep panel: Neg 03/12/2024: Dr Dinesh Jones 3.3, Gluc 129 A1C 6.0 03/17/2024: K 3.8 07/17/2024: PSA 0.73 A1C 6.0 Not available 07/21/2024 09:44:27 08/27/2024 08/27/2024 I have reconciled the patient's medications post their discharge from inpatient facility. 02/07/2023: PSA 0.61 09/06/2023: A1C 6.0 Gluc 117 TG 151 09/10/2023: ALT/AST 64/50 GGT: Neg 10/15/2023: Hep panel: Neg 03/12/2024: Dr Dinesh Jones 3.3, Gluc 129 A1C 6.0 03/17/2024: K 3.8 07/17/2024: PSA 0.73 A1C 6.0 Not available 08/27/2024 17:45:23 09/21/2024 09/21/2024 02/07/2023: PSA 0.61 09/06/2023: A1C 6.0 Gluc 117 TG 151 09/10/2023: ALT/AST 64/50 GGT: Neg 10/15/2023: Hep panel: Neg 03/12/2024: Dr Dinesh Jones 3.3, Gluc 129 A1C 6.0 03/17/2024: K 3.8 07/17/2024: PSA 0.73 A1C 6.0 09/08/2204: A1C 5.7 Gluc 108 Not available 09/21/2024 12:26:23 10/21/2024 10/21/2024 Assessment: Very severe OSAHS, AHI = 91 Treatment-emerge nt central apneas Plan: The following were reviewed and explained to the patient: [facility] split sleep study 04/29/23 AHI = 91, supine AHI = 94, ResMed AirFit F30 full face mask @ 19-25/15-21 cmH2O PAP compliance downloaded and interpreted x 20 minutes. Data reviewed and explained to the patient. Average apnea/hypopnea index (AHI) is 1.7. Patient used PAP > 4 hours 74% of the time. PAP is set at 19-21/15-17 cmH2O. PAP will remain/be reset at 19-21/15-34tjC9J . Keep ramp off per patient. Keep humidifier @ level 3. Oxygen supplementation: none Patient is benefiting from PAP therapy. Encouraged patient to maintain PAP use more than 70% of the time. Statement of PAP use and benefits will be sent to the home care store. Educated the patient on problems and solutions associated with positive airway pressure (PAP) use. Difficulty tolerating pressure, mask leaks, intolerance of interface, nasal congestion, claustrophobic response, dry mouth, and unintentional mask removal during sleep were covered. Provided the patient with a list of local home care stores where positive airway pressure (PAP) units, accoutrement, and services are available. Home care store selection is based on patient's insurance carrier. Patient will setup an appointment with [facility] for supplies and pressure adjustments. A major predictor of success with use of PAP is follow-up with both the respiratory supplier and the treating physician. The download results can show the treating physician information about adherence to treatment, residual AHI while on treatment and presence of large mask leakage. This information is especially helpful if the patient has residual sleepiness despite treatment. General information on sleep disordered breathing, evaluation of sleep disordered breathing, treatment with PAP therapy, and living with PAP therapy were covered. We discussed with the patient the impact of weight on: Sleep disordered breathing Hypertension Hyperlipidemia DM CAD OA Gout We discussed with the patient the benefit of PAP therapy on: Sleep disordered breathing Hypertension DM Educated the patient on sleep hygiene measures. Relaxing rituals to rest easy, understanding foods with positive and negative impact on sleep, creating a peaceful sleep environment, timing of exercise, using herbal sleep aids, and practicing sleep-friendly meditation were covered. To determine how much sleep is needed, the patient will assess where he falls on the spectrum, examine what lifestyle factors such as work schedules and stress are affecting the quality and quantity of sleep. In general, adults need 7-9 hours of sleep. Educated the patient regarding foods that promote sleep. These include but are not limited to cherries, bananas, toast, oatmeal, and warm milk. Educated the patient regarding foods and drinks to avoid before bedtime. These include but are not limited to aged cheese, chocolate, spicy foods, tomato-based sauces, soy, ginseng tea and processed meat. Advocated influenza vaccination annually and pneumonia vaccination RANJAN. Advocated weight loss through diet and exercise. Patient's ideal body weight according to height and gender is up to 165 lbs. Encouraged patient to adjust caloric intake to maintain/achieve ideal body weight, emphasizing on fruits, vegetables, whole grains, and fat-free or low-fat products. These include lean meats, poultry, fish, beans, eggs, and nuts and foods that are low in saturated fats, trans-fats, cholesterol, salt (sodium), and glycemic index. Stressed the importance of regular exercise up to the patient's capacity limits. In this case, we recommend 20 min daily walking, 2 days a week of resistance training. Patient to monitor BP daily and bring records to PCP for further management. Follow-up: 1 year, October 2025 [email or web address] Not available 10/21/2024 14:30:42 Plan of Treatment Reminders Order Date Submit Date Provider Last Modified By Organization Details Last Modified Time Details Appointments Follow Up 15 2024 11:00A Heather [email or web address] MD Not available Not available Not available Follow Up 2025 01:00P Heather Canales MD Not available Not available Not available Lab lipid panel, serum [address] (Lab), [address] [place], [address], 09/21/2024 16:03:18 CBC w/ auto diff [address] (Lab), [address] [place], [address], 09/21/2024 16:03:18 CMP, serum or plasma [address] (Lab), [address] [place], [address], 09/21/2024 16:03:18 TSH, serum or plasma [address] (Lab), [address] [place], [address], 09/21/2024 16:03:18 glycohemo globin, total, blood [address] (Lab), [address] [place], [address], 09/21/2024 16:03:19 microalbu min, urine [address] (Lab), [address] [place], [address], 09/21/2024 16:03:19 lipid panel, serum [address] (Lab), [address] [place], [address], 08/27/2024 17:53:59 CBC w/ auto diff [address] (Lab), [address] [place], [address], 08/27/2024 17:53:59 CMP, serum or plasma [address] (Lab), [address] [place], [address], 08/27/2024 17:54:00 TSH, serum or plasma [address] (Lab), [address] [place], [address], 08/27/2024 17:54:00 glycohemo globin, total, blood [address] (Lab), [address] [place], [address], 08/27/2024 17:54:00 microalbu min, urine [email or web address] [place] [address] (Lab), [address] [place], [address], 08/27/2024 17:54:00 lipid panel, serum 2024 025 [facility] (Lab), [address] [place], [address], 07/21/2024 10:05:21 CBC w/ auto diff 2024 025 [facility] (Lab), [address] [place], [address], 07/21/2024 10:05:22 CMP, serum or plasma 2024 025 [facility] (Lab), [address] [place], [address], 07/21/2024 10:05:22 TSH, serum or plasma 2024 025 [facility] (Lab), [address] [place], [address], 07/21/2024 10:05:22 glycohemo globin, total, blood 2024 025 [facility] (Lab), [address] [place], [address], 07/21/2024 10:05:21 microalbu min, urine 2024 025 [facility] (Lab), [address] [place], [address], 07/21/2024 10:05:21 lipid panel, serum 2023 024 [facility] (Lab), [address] [place], [address], 09/09/2024 11:44:24 CBC w/ auto diff [address] (Lab), [address] [place], [address], 06/02/2024 15:18:51 CMP, serum or plasma [address] (Lab), [address] [place], [address], 06/02/2024 15:18:51 TSH, serum or plasma [address] (Lab), [address] [place], [address], 06/02/2024 15:18:51 PSA, total, serum or plasma [address] (Lab), [address] [place], [address], 06/02/2024 15:18:52 glycohemo globin, total, blood [address] (Lab), [address] [place], [address], 06/02/2024 15:18:51 microalbu min, urine [address] (Lab), [address] [place], [address], 06/02/2024 15:18:[address] referral - Please call patient to schedule an appointme nt. Thank you. 2024 025 NANCY Gloria MD, [address], [place], [address], 09/24/2024 10:05:26 neurologi marycruz surgeon referral - Please call patient to schedule an appointme nt. Thank you. 2024 025 [place], [address] [facility], [address] [facility], [place], [address], 09/24/2024 10:30:47 nephrolog ist referral - Please call patient to schedule an appointme nt. Thank you. 2024 025 NANCY Franklin, [address], [address], [place], [address], 09/24/2024 10:20:34 podiatris t referral - Please call patient to schedule an appointme nt. Thank you. 2024 025 YANELIS Church DPM, [address] [facility], [facility] [address], [place], [address], 09/24/2024 12:26:08 cardiolog ist referral - Please call patient to schedule an appointme nt. Thank you. 2024 025 YANELIS Barnes, [address], [place], [address], 09/29/2024 10:27:25 gastroent erologist referral - Please call patient to schedule an appointme nt. Thank you. 2024 025 [email or web address] Megan Alejo MD, [address] [facility], [facility] [address], [place], [address], 09/21/2024 19:01:[address] referral - Please call patient to schedule an appointme nt. Thank you. 2024 025 [email or web address] Radha Gloria MD, [address], [place], [address], 09/30/2024 08:57:24 neurologi marycruz surgeon referral - Please call patient to schedule an appointme nt. Thank you. 2024 025 [place], [address] [facility], [address] [facility], [place], [address], 08/31/2024 15:20:36 nephrolog ist referral - Please call patient to schedule an appointme nt. Thank you. 2024 025 NANCY Franklin, [address] [address], [address], [place], [address], 08/31/2024 15:01:04 podiatris t referral - Please call patient to schedule an appointme nt. Thank you. 2024 025 YANELIS Navi COTTERM, [address] [facility], [address], [place], [address], 08/31/2024 08:59:49 cardiolog ist referral - Please call patient to schedule an appointme nt. Thank you. 2024 025 NANCY Barnes, [address], [place], [address], 08/28/2024 15:55:20 gastroent erologist referral - Please call patient to schedule an appointme nt. Thank you. 2024 025 [email or web address] Megan Alejo MD, [address] [facility], [address], [place], [address], 08/31/2024 10:42:[address] referral 2024 025 [email or web address] Pancho Chiu MD, [address] [facility], [address], [address], 07/21/2024 11:47:58 neurologi marycruz surgeon referral - Please call patient to schedule. 2024 025 [email or web address] [place], [address] [facility], [address], [place], [address], 07/21/2024 11:47:57 nephrolog ist referral 2024 025 [email or web address] Segun Franklin, [address], [address], [place], [address], 07/21/2024 11:48:32 podiatris t referral 2024 025 [email or web address] Navi Church DPM, [address], [address], [place], [address], 07/21/2024 11:43:19 cardiolog ist referral - Please call patient to schedule. 2024 025 [email or web address] Simon Barnes, [address], [place], [address], 07/21/2024 11:43:19 gastroent erologist referral - Please call patient to schedule. 2024 025 Megan Alejo MD, [address] [facility], [address], [place], [address], 07/21/2024 11:47:[address] referral 2023 024 [email or web address] Pancho Chiu MD, [address] [facility], [address], [address], 06/03/2024 17:37:35 neurologi marycruz surgeon referral - Please call patient to schedule. 2023 024 [email or web address] [place], [address] [facility], [address], [place], [address], 06/03/2024 17:37:35 podiatris t referral 2023 024 Navi Church DPM, [address], [address], [place], [address], 06/03/2024 17:36:41 cardiolog ist referral - Please call patient to schedule. 2023 024 [email or web address] Simon Barnes, [address], [place], [address], 06/03/2024 17:36:42 gastroent erologist referral - Please call patient to schedule. 2023 024 [email or web address] Megan Alejo MD, [address] [facility], [facility], [place], [address], 06/03/2024 17:37:34 Procedures colonosco py screening (PROC) - Please call patient to schedule an appointme nt. Thank you. 2024 025 NANCY Solorzano MD, [address] [place], [address], 09/21/2024 19:45:23 colonosco py screening (PROC) - Please call patient to schedule an appointme nt. Thank you. 2024 025 [email or web address] Megan Alejo MD, [address] [facility], [facility], [place], [address], 08/27/2024 18:30:33 colonosco py screening (PROC) - Please call patient to schedule. 2024 025 [email or web address] Megan Alejo MD, [address] [facility], [facility], [place], [address], 07/21/2024 11:46:33 colonosco py screening (PROC) - Please call patient to schedule. 2023 024 [email or web address] Alejo MD, [address] [facility], [facility], [place], [address], 06/03/2024 17:36:20 Surgeries None recorded. Imaging None recorded. Medication Orders Zetia 10 mg tablet 2024 025 [id number], [address], [place], [id number], 07/21/2024 09:52:54 Patient TargetsNo targets recorded. Patient Instructions Encounter Date Encounter Id Patient Instructions Last Modified By Organization Details Last Modified Time 06/02/2024 [id number] diabetic eye exam* [email or web address] Not available 06/02/2024 15:18:52 07/21/2024 [id number] diabetic eye exam* [email or web address] Not available 07/21/2024 18:05:27 08/27/2024 [id number] diabetic eye exam* [email or web address] Not available 08/27/2024 17:54:01 Thank you for your visit to our office today. We would like to request that you reach out to your referring or previous provider and request that they send us a Summary of Care in electronic form, so that we may have it on file in your medical record. At your visit, we had the medical records we needed to provide you with the best possible care; however, for insurance purposes, an electronic Summary of Care is beneficial. Thank you for your assistance in obtaining this information and we look forward to providing continued care to you. Please review your medication list from the Summary of Care for this visit. If there are any differences from what you are currently taking at home, please call us to discuss. [email or web address] Not available 08/27/2024 17:02:02 Homebound Status : {{Patient has an inability to leave the home without a taxing effort and assistance from another person Does not meet homebound status}} Required Home Health Services: {{none nursing home, physical therapy, occupational therapy nursing home, physical therapy nursing home}} Durable Medical Equipment needed: {{cane walker wal ker with seat manual wheelchair bedsid e commode oxygen}} Billing Guidelines CPT code 90241- Transitional Care Management services with moderate medical decision complexity (krzq-pk-ttah visit within 14 days of discharge). CPT code 04704- Transitional Care Management services with high medical decision complexity (nqdb-lv-mpjx visit within 7 days of discharge). cedric Not available 08/27/2024 17:02:02 Reason for Referral Wiping Rag Washer Referral for Type 2 diabetes mellitus without complication Referring Physician: Leila Cespedes, Internal Medicine, Encounter Date: 06/02/2024 Air Box Tester Referral for Co ronary arteriosclerosis Please call patient to schedule. Referring Physician: Leila Cespedes Internal Medicine, Encounter Date: 06/02/2024 Epidemiologist Referral for Liver enzymes level above reference range Please call patient to schedule. Referring Physician: Leila Cespedes Internal Medicine, Encounter Date: 06/02/2024 Neurological Surgeon Referra l for Low back pain Please call patient to schedule. Referring Physician: Leila Cespedes Internal Medicine, Encounter Date: 06/02/2024 Neurologist Referral for Cer ebrovascular accident Referring Physician: Leila Cespedes Internal Medicine, Encounter Date: 06/02/2024 Wiping Rag Washer Referral for Type 2 diabetes mellitus without complication Referring Physician: Leila Cespedes Internal Medicine, Encounter Date: 07/21/2024 Air Box Tester Referral for Co ronary arteriosclerosis Please call patient to schedule. Referring Physician: Leidy Wheeler Medicine, Encounter Date: 07/21/2024 Epidemiologist Referral for Liver enzymes level above reference range Please call patient to schedule. Referring Physician: Leila Cespedes Internal Medicine, Encounter Date: 07/21/2024 Neurological Surgeon Referra l for Low back pain Please call patient to schedule. Referring Physician: Leidy Wheeler Medicine, Encounter Date: 07/21/2024 Neurologist Referral for Cer ebrovascular accident Referring Physician: Leidy Wheeler, Encounter Date: 07/21/2024 Rubber Covering Machine Operator Referral for Es sential hypertension Referring Physician: Leila Cespedes Internal Medicine, Encounter Date: 07/21/2024 Wiping Rag Washer Referral for Type 2 diabetes mellitus without complication Please call patient to schedule an appointment. Thank you. Referring Physician: Leidy Wheeler Medicine, Encounter Date: 08/27/2024 Air Box Tester Referral for Co ronary arteriosclerosis Please call patient to schedule an appointment. Thank you. Referring Physician: Leidy Wheeler, Encounter Date: 08/27/2024 Epidemiologist Referral for Liver enzymes level above reference range Please call patient to schedule an appointment. Thank you. Referring Physician: Leila Cespedes Internal Medicine, Encounter Date: 08/27/2024 Neurological Surgeon Referra vera for Low back pain Please call patient to schedule an appointment. Thank you. Referring Physician: Leila Cespedes Internal Medicine, Encounter Date: 08/27/2024 Rubber Covering Machine Operator Referral for Es sential hypertension Please call patient to schedule an appointment. Thank you. Referring Physician: Leila Cespedes Internal Medicine, Encounter Date: 08/27/2024 Neurologist Referral for Cer ebrovascular accident Please call patient to schedule an appointment. Thank you. Referring Physician: Leila Cespedes Internal Medicine, Encounter Date: 08/27/2024 Wiping Rag Washer Referral for Type 2 diabetes mellitus without complication Please call patient to schedule an appointment. Thank you. Referring Physician: Leila Cespedes Internal Medicine, Encounter Date: 09/21/2024 Air Box Tester Referral for Co ronary arteriosclerosis Please call patient to schedule an appointment. Thank you. Referring Physician: Leila Cespedes Internal Medicine, Encounter Date: 09/21/2024 Epidemiologist Referral for Liver enzymes level above reference range Please call patient to schedule an appointment. Thank you. Referring Physician: Leila Cespedes Internal Medicine, Encounter Date: 09/21/2024 Neurological Surgeon Sunny vera for Low back pain Please call patient to schedule an appointment. Thank you. Referring Physician: Leila Cespedes Internal Medicine, Encounter Date: 09/21/2024 Rubber Covering Machine Operator Referral for Es sential hypertension Please call patient to schedule an appointment. Thank you. Referring Physician: Leila Cespedes Internal Medicine, Encounter Date: 09/21/2024 Neurologist Referral for Cer ebrovascular accident Please call patient to schedule an appointment. Thank you. Referring Physician: Leila Cespedes, Internal Medicine, Encounter Date: 09/21/2024 Results Created Date Observation Date Name Description Value Unit Range Abnormal Flag Note LastModifiedBy Organization Detail LastModifiedTime 05/20/20 24 05/12/2024 ct guide d needl e biops y (PROC ) No observ ation record ed. BARCODE Not Available 2023 15:33:59 Result Notes None recorded. Problems Name Problem SNOMED Code Status Onset Date Resolution Date Notes Provider Name and Address Organization Details Recorded Time Hyperlipid emia 67193569 Active 2022 Not Available [facility] 3 04:00:34 Gout 89749611 Active 2022 Not Available [facility] 3 04:00:34 Vitamin D deficiency 14194135 Active 2022 Not Available [facility] 3 04:00:34 Obesity 876863217 Active 2022 Not Available [facility] 3 04:00:34 Obstructiv e sleep apnea syndrome 19726621 Active 2023 Leila waterman MD [address], [place], [address] , [employer] 4 11:54:41 Steatotic liver disease 800124673 Active 2023 Ann Mcneill MA [facility], [employer] 4 14:23:31 Environmen shelia allergy 579215328 Active 2023 Leila waterman MD [address], [address], [place], [address] , [employer] 4 18:11:23 Cerebrovas cular accident 233618294 Active 2023 Leila waterman MD [address], [address], [place], [address] , [employer] 4 15:02:14 Type 2 diabetes mellitus without complicati on 405489755 Active 2024 Leila waterman MD [address], [address], [place], [address] , [employer] 5 20:05:27 Coronary arterioscl erosis 57700485 Active 2024 Leila waterman MD [address], [place], [address] , [employer] 5 20:05:27 Insect bite - wound 859383498 Completed Not Available [facility] 3 04:51:27 Osteoarthr itis 109193613 Active Not Available [facility] 3 04:00:34 Essential hypertensi on 68612647 Active Not Available [facility] 3 04:00:34 COVID-19 176748150 Active 2021 Not Available [facility] 3 04:00:34 Notes:Medical History: CVA R hinitis COVID infections 01/2020, 06/2021 Obesity with very severe OSAHS, AHI = 91, 04/29/23, on autoBPAP c/o Provider Plus Hypertension EF 65% Hyperlipidemia T2DM with microalbuminuria CAD Hepatic steatosis Vit D deficiency OA Gout Procedure History: Coronary artery stent placement 2023 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 Procedures Surgical History Date Name Laterality Status Provider Name and Address Organization Details Recorded Time 5 Transitional_Ca re_Management completed Leila Cespedes MD [address], [address], [place], [address], [employer] 08/27/2024 18:00:20 4 Blank Procedure Note completed Sam pelayo MD [address], [place], [address], [employer] [facility] 05/05/2024 12:44:08 4 Medicare Wellness CPT Code, subsequent completed Randell Chanel LPN [place] Advisor Client Match [facility] 03/24/2024 08:21:56 4 Advanced Care Planning completed Randell Chanel LPN [facility] 03/24/2024 12:32:40 4 Cardiac Stent Placement completed Estelita Baptiste MA [facility] 04/02/2024 12:31:57 8 Knee arthroscopy/lupe belle completed Renetta Dong MA [facility] 03/05/2023 12:57:19 2 Knee arthroscopy/lupe belle completed Renetta Dong MA [facility] 03/05/2023 12:57:13 Back Surgeries completed Renetta Dong MA [facility] 03/05/2023 12:56:47 Imaging Results Imaging Date Name Status [facility]Modified by [facility] Details LastModified Time 05/12/2024 ct guided needle biopsy (PROC) completed BARCODE Information not available 05/20/2024 15:33:59 Procedure Notes None recorded. Medical Equipment None Reported. Allergies No known drug allergies Medications Name Sig Start Date Stop Date Status Note LastModified by Organization Details LastModified Time losartan 50 mg tablet TAKE 1 TABLET BY MOUTH TWICE DAILY 2024 active Not Available Not Available Not Avai lable carisopro dol 350 mg tablet active Not Available Not Available No t Available nifedipin e ER 30 mg tablet,ex tended release 24 hr take 1 tab daily 07/24 completed pt has not started- wants to wait for appt with Cameron Not Available Not Available Not Available cyclobenz aprine 10 mg tablet Take 1 tablet every day by oral route as needed for 30 days. active Not Available Not Available No t Available atorvasta tin 40 mg tablet TAKE 1 TABLET BY MOUTH DAILY active Not Available Not Available No t Available metformin 500 mg tablet take 1 tab daily 07/24 completed Not Available Not Available Not Available cilostazo l 100 mg tablet TAKE 1 TABLET BY MOUTH TWICE DAILY active Not Available Not Available No t Available prednison e 10 mg tablet Take 3 tablets every day by oral route in the morning for 5 days. active USE DIRECTED Not Available Not Available Not Available doxycycli ne hyclate 100 mg capsule Take 1 capsule twice a day by oral route. active Not Available Not Available No t Available atorvasta tin 20 mg tablet TAKE 1 TABLET BY MOUTH EVERY DAY 03/24 completed Not Available Not Available Not Available cetirizin e 10 mg tablet TAKE 1 TABLET BY MOUTH ONCE DAILY NEEDED 03/24 completed Not Available Not Available Not Available azithromy gloria 250 mg tablet active Not Available Not Available No t Available aspirin 325 mg tablet Take 1 tablet every day by oral route for 90 days. 07/28 completed Not Available Not Available Not Available benzonata te 200 mg capsule TAKE 1 CAPSULE BY MOUTH THREE TIMES DAILY NEEDED 07/14 completed Not Available Not Available Not Available hydrocodo ne 5 mg-acetam inophen 325 mg tablet 03/22 completed Not Available Not Available Not Available phenazopy ridine 200 mg tablet active Not Available Not Available Not Available prednison e 20 mg tablet 03/22 completed Not Available Not Available Not Available Tylenol Arthritis Pain 650 mg tablet,ex tended release Take 3 tablets every day by oral route. 08/27 completed Not Available Not Available Not Available phentermi ne 37.5 mg tablet TAKE ONE TABLET BY MOUTH ONCE DAILY IN THE MORNING 06/15 completed Not Available Not Available Not Available clopidogr el 75 mg tablet TAKE 1 TABLET BY MOUTH EVERY DAY 06/02 completed Not Available Not Available Not Available chlorthal idone 25 mg tablet Take 1 tablet every day by oral route for 90 days. 06/02 completed Not Available Not Available Not Available ciproflox acin 500 mg tablet Take 1 tablet every 12 hours by oral route for 6 days. 01/25 completed Not Available Not Available Not Available sulfameth oxazole 800 mg-trimet hoprim 160 mg tablet active Not Available Not Available Not Available hydrocodo ne 10 mg-acetam inophen 325 mg tablet TAKE ONE TABLET BY MOUTH THREE TIMES DAILY active Not Available Not Available No t Available aspirin 81 mg tablet,de layed release Take 1 tablet every day by oral route. 03/05 completed Not Available Not Available Not Available o
--- OUTSIDE RECORDS SUMMARY | 2024-11-23 13:52 | XMS_ITS | Continuity of Care Document ---
Author Organization [facility] Address [address] [place] [address] Phone Care Team Providers Care Oracle Security Consultant Name Role Phone Ashu HAMMOND, Emerson Unavailable Unavailable Procedures Procedure Date Work/medical disability examination [facility] Prolonged serv, w/o contact, 1st hr X-ray exam of knee, 1 or2 views 010 X-ray exam of both knees, standing X-ray exam of knee, 1 or2 views 010 Advance Directives Directive Yes / No Effective Date File Name No Information Encounters Encounter Description Practice Location Reason(s) For Visit Diagnoses Date Provider Providers Copied on Encounter Work/medical disability examination [facility], [address] [place] [address], [id number], tel:[phone] [facility] [employer] [employer] Ashu Norman. [address] [place] [address], [id number], [place]. tel:[phone] Family History Family Member Type Diagnosis Age At Onset No Information Payers Payer name Insurance type Covered constitution party ID Authoriza tion(s) No Information Social [...]
--- OUTSIDE RECORDS SUMMARY | 2024-11-23 13:52 | XMS_ITS | Encounter Summary ---
Author Organization [facility] Address [address] [place] [address] Care Team Providers Care Frame Sample And Pattern Supervisor Name Role Phone Dariela Ignacio KELLIE Primary Care Provider [phone] Leila Cespedes MD Primary Care Provider Encounter Details Date Type Department Care Team (Late st Contact Info) Description 01/22/2020 Lab Requisition [facility] [address] [place] [address] Social History Tobacco Use Types Packs/Day Years Used Date Smoking Tobacco: Never Smokeless Tobacco: Never Sex and Gender Information Value Date Recorded Sex Assigned at Not on file Legal Sex Male 6:59 AM 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 Gender Identity Not on file Sexual Orientation Not on file documented as of this encounter Plan of Treatment Upcoming Encounters Date Type Department Care Team (Late Contact Info) Description 01/14/2025 11:30 AM CDT Office Visit [facility] - Neurology [address] [place] [phone] Willis Gloria MD [address] [place] [address] [place] [id number] documented as of this encounter Procedures Procedure Name Priority Date/Time Associated Diagnosis Comments SARS-COV-2 (COVID-19) IN HOUSE Routine 01/22/2020 7:20 AM CDT documented in this encounter Results * SARS-COV-2 (COVID-19) IN HOUSE (01/22/2020 7:20 AM CDT) COVID-19 PCR Not detected Not detected, Invalid 01/23/2020 1:48 AM CDT [facility] Microbiology SPECIMEN FROM NASOPHARYNGEAL STRUCTURE / Unknown Collection / Unknown 01/22/2020 7:20 AM CDT 01/22/2020 4:07 PM CDT Narrative [facility] - 01/23/2020 1:48 AM CDT This Real Time RT-PCR assay was developed and its performance characteristics determined by [facility]. This test has been authorized [...] LAB - MICROBIOLOGY ORDERABLES Fi nal Result [facility] [address] [place] [address], [facility] [phone] documented in this encounter Visit Diagnoses Not on filedocumented in this encounter Additional Health Concerns Infection Onset Date Last Indicated Resolved Time COVID-19 Under Investigation 01/22/2020 01/22/2020 01/23/2020 1:48 AM CDT COVID-19 Under Investigation 08/20/2024 08/20/2024 08/20/2024 10:23 AM 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 documented as of this encounter Care Teams Frame Sample And Pattern Supervisor Relationship Specialty Start Date End Date Dariela Ignacio APRN-MELI [address] [address] PCP - General Nurse Practitioner Family 01/19/1906/08/24 Leila Cespedes MD [address] [address] PCP - General Internal Medicine 06/09/24 documented as of this encounter
--- OUTSIDE RECORDS SUMMARY | 2024-11-23 13:52 | XMS_ITS | CONTINUITY OF CARE DOCUMENT ---
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 Juan Jose Cain RN CAD-07/17 NUC NEG completed - Davion Barnes MD SLEEP APNEA-08/16 ON CPAP active Davion le MD LEG PAIN-05/15 TANYA DOP NEG active - Luciana Barnes MD HTN-02/16 ECHO MOD LVHEF 60 active ? Juan Jose Cedric nato RN Hypercholesterolemia active Monika Grtamarleeann lder CAD S/P BMS-RCA MAY 2008 S/P RHETT RCA 09/26/2023 active Davion Barnes MD CAD-08/15 CAROTID NEG completed - Davion edge MD ENCOUNTERS Date Type Provider Location Encounter Diag nosis - In-person encounter Office Visit Davion Barnes MD [place] [facility] - In-person encounter Office Visit Davion Barnes MD [place] [facility] Ventricular tachycardia, unspecified - In-person encounter Office Visit Davion Barnes MD [place] [facility] CVA - In-person encounter Office Visit Davion Barnes MD [place] [facility] - In-person encounter Office Visit Davion Barnes MD [place] [facility] CAD S/P BMS-RCA MAY 2008 S/P RHETT RCA 09/26/2023 - In-person encounter Office Visit Davion Barnes MD [place] [facility] - In-person encounter Office Visit Davion Barnes MD [place] [facility] - In-person encounter Office Visit Davion Barnes MD [place] [facility] - In-person encounter Office Visit Davion Barnes MD [place] [facility] - In-person encounter Office Visit Davion Barnes MD [place] [facility] - In-person encounter Office Visit Davion Barnes MD [place] [facility] - In-person encounter Office Visit Davion Barnes MD [place] [facility] Gout - In-person encounter Office Visit Davion Barnes MD [place] [facility] Diabetes mellitus - In-person encounter Office Visit Davion Barnes MD [place] [facility] - In-person encounter Office Visit Davion Barnes MD [place] [facility] - In-person encounter Office Visit Davion Barnes MD [place] [facility] - In-person encounter Office Visit Davion Barnes MD [place] [facility] OSTEOARTHRITIS - In-person encounter Office Visit Davion Barnes MD [place] [facility] - In-person encounter Office Visit Davion Barnes MD [place] [facility] - In-person encounter Office Visit Davion Barnes MD [place] [facility] OSTEOARTHRITIS-KNEESCA ROTID ARTERY DISEASE- 02/16 CAROTID NEGRENAL ARTERY STENOSIS-02/16 DUPLEX NEG - In-person encounter Office Visit Davion Barnes MD [place] [facility] CAD S/P BMS-RCA MAY 2008 S/P RHETT RCA 09/26/2023HTN-02/16 ECHO MOD LVHEF 60LEG PAIN-05/15 TANYA DOP NEGCAD-06/07 CARDIOPULM NLCAROTID ARTERY DISEASE - In-person encounter Office Visit Davion Barnes MD [place] [facility] - In-person encounter Office Visit Davion Barnes MD [place] [facility] - In-person encounter Office Visit Davion Barnes MD [place] [facility] SHORTNESS OF BREATH-06/17 NUC NEG - In-person encounter Office Visit Davion Barnes MD [place] [facility] CAD-08/15 CAROTID NEGCAD S/P BMS-RCA MAY 2008 S/P RHETT RCA 09/26/2023SLEEP APNEA-2/09 ON CPAPCAD-07/17 NUC NEG - In-person encounter Office Visit Davion Barnes MD [place] [facility] - In-person encounter Office Visit Davion Barnes MD [place] [facility] - In-person encounter Office Visit Davion Barnes MD [place] [facility] HTN-02/16 ECHO MOD LVHEF 60SLEEP APNEA-2/09 ON CPAP - In-person encounter Office Visit Davion Barnes MD [place] [facility] CAD S/P BMS-RCA MAY 2008 S/P RHETT RCA 09/26/2023Hypercholeste rolemia VITAL SIGNS Date Observation Value Provider Body Mass Index (Ratio) 45.77 kg/m2 Salma Barnes MD blood pressure, cuff size regular Ke rri Linda blood pressure, diastolic 70 mm[Hg] Ke rri Linda blood pressure, systolic 150 mm[Hg] Foster ri Linda oxygen saturation, oximetry 97 % Monika Mckeon pulse rate 61 /min Monika Gamino [facility] weight E&M 310 [lb_av] Monika Gamino [facility] height E&M 69 [in_i] Monika Gamino [facility] Body Mass Index (Ratio) 46.51 kg/m2 Salma Barnes MD blood pressure, diastolic 70 mm[Hg] Am yuan Ventimiglia [facility] blood pressure, systolic 132 mm[Hg] [place] nda Ventimiglia [facility] oxygen saturation, oximetry 98 % Maryjane Ventimiglia [facility] respiratory rate E&M 14 /min Susana Seals weight E&M 315 [lb_av] Susana Seals height E&M 69 [in_i] Susana Seals blood pressure, cuff size regular Williams Selas Body Mass Index (Ratio) 48.82 kg/m2 Salma Barnes MD blood pressure, diastolic 74 mm[Hg] Leobardo suarez Gomez blood pressure, systolic 159 mm[Hg] Tanya guardado Gomez oxygen saturation, oximetry 98 % [facility] Gomez pulse rate 68 /min [facility] Gomez blood pressure, cuff size regular Leobardo erick Gomez weight E&M 330.6 [lb_av] [facility] Gomez height E&M 69 [in_i] [facility] Gomez Body Mass Index (Ratio) 51.53 kg/m2 [...] Ja rr blood pressure, systolic 158 mm[Hg] [facility] oxygen saturation, oximetry 95 % David respiratory rate E&M 16 /min David weight E&M 357 [lb_av] David height E&M [...] blood pressure, cuff size large Mi ye [place] blood pressure, diastolic 74 mm[Hg] Mi ye [place] blood pressure, systolic 156 mm[Hg] Patel helle [place] oxygen saturation, oximetry 96 % Zabrina Delcid respiratory rate E&M 16 /min Liudmila bradshaw Bhavin pulse rate 81 /min Zabrina jalloh weight E&M 374 [lb_av] Zabrina jalloh height E&M 69 [in_i] Zabrina jalloh Body Mass Index (Ratio) 54.49 kg/m2 Salma Barnes MD blood pressure, cuff size large Mi ye [place] blood pressure, diastolic 90 mm[Hg] In ye [place] blood pressure, systolic 150 mm[Hg] Patel parmar [place] oxygen saturation, oximetry 96 % Zabrina Delcid [...] Brianna O'David blood pressure, diastolic 70 mm[Hg] [facility] O'David blood pressure, systolic 130 mm[Hg] [facility] O'David oxygen saturation, oximetry 97 % Brianna [...] Xochitl Soren height E&M 69 [in_i] Xochitl Violet Body Mass Index (Ratio) 57.29 kg/m2 Nestor Turner blood pressure, cuff size large Garret [facility]ri [facility] blood pressure, diastolic 80 mm[Hg] Garret rri [facility] blood pressure, systolic 130 mm[Hg] Foster [facility]re[facility] oxygen saturation, oximetry 98 % Monika Ernandeznancy respiratory rate E&M 20 /min Monika cabral pulse rate 78 /min Monika Ernandezlety [facility] weight E&M 388 [lb_av] Monika Hanny er [...] Saxena weight E&M 375 [lb_av] AbyMarla Reagan [facility] blood pressure, diastolic 75 mm[Hg] Nm selene Santillan blood pressure, systolic 156 mm[Hg] Evelina altamirano Santillan pulse rate 80 /min Angle Santillan oxygen saturation, oximetry 97 % Angle Santillan respiratory rate E&M 16 /min Angle Santillan Body Mass Index (Ratio) 55.37 kg/m2 [facility] weight E&M 375 [lb_av] Angle Santillan blood pressure, diastolic 69 mm[Hg] Earl Barnes MD blood pressure, systolic 140 mm[Hg] Ricky Barnes MD Body Mass Index (Ratio) 53.45 kg/m2 [facility] pulse rate 78 /min Angle Santillan oxygen [...] - 55.0 sum total cholesterol 164.0 mg/dL [facility] 0.0 - 200.0 Triglycerides-direct 268.0 mg/dL [facility] 0.0 - 150.0 High platelet count 343 10*3/uL [facility] hematocrit, blood 42.4 % [facility] thyroid stimulating hormone, serum 1.70 u[IU]/mL [facility] alanine aminotransferase (SGPT), serum 26 1/L [facility] aspartate aminotransferase (SGOT), serum 26 1/L [facility] creatinine, serum 0.8 mg/dL [facility] potassium, serum 4.2 mmol/L [facility] sodium, serum 141 mmol/L [facility] creatinine, random, urine 332.6 mg/dL [facility] 20-370 Vanillylmandelate acid/creatinine ratio, urine, quantitative 3.0 mg/g{creat} [facility] 1.1-4.1 aldosterone, serum 7 ng/dL [facility] plasma renin activity 32.09 [facility] 0.25-5.82 High thyroid stimulating hormone, serum 1.544 u[IU]/mL [facility] cholesterol/HDL ratio, serum 3.1 [facility] triglyceride, serum, fasting 89 mg/dL [facility] HDL cholesterol, serum 49 mg/dL [facility] LDL cholesterol, serum 84 mg/dL [facility] cholesterol, serum 151 mg/dL [facility] globulins, serum, total 3.0 g/dL [facility] estimated glomerular filtration rate 107.1 mL/min [facility] albumin/globulin ratio, serum 1.3 [facility] protein, total, serum 6.9 g/dL [facility] albumin, serum 3.9 g/dL [facility] bilirubin, serum, total 0.5 mg/dL [facility] alkaline phosphatase, serum 61 1/L [facility] alanine aminotransferase (SGPT), serum 31 1/L [facility] aspartate aminotransferase (SGOT), serum 25 1/L [facility] calcium, serum 9.6 mg/dL [facility] blood glucose, fasting 96 mg/dL [facility] creatinine, serum 0.8 mg/dL [facility] urea nitrogen, blood 12 mg/dL [facility] carbon dioxide, serum, total 29 mmol/L [facility] chloride, serum 106 mmol/L [facility] potassium, serum 4.0 mmol/L [facility] sodium, serum 143 mmol/L [facility] platelet count 261 10*3/uL [facility] red blood cell distribution width 14.1 % [facility] mean corpuscular hemoglobin concentration, RBC 33.6 g/dL [facility] mean corpuscular hemoglobin, RBC 30.3 pg [facility] mean corpuscular volume, RBC 90.2 fL [facility] hematocrit, blood 44.0 % [facility] hemoglobin, blood 14.8 g/dL [facility] erythrocyte (RBC) count 4.9 10*6/mm3 [facility] neutrophils, segmented as percent of blood leukocytes 3.8 % [facility] monocyte count, blood 0.4 10*3/mm3 [facility] lymphocyte count, blood 2.1 10*3/mm3 [facility] neutrophils as percent of blood leukocytes 60.3 % [facility] monocytes as percent of blood leukocytes 5.7 % [facility] lymphocytes as percent of blood leukocytes 34.0 % Yoavpetranandini Isaac leukocyte count, blood 6.3 10*3/mm3 [facility] alanine aminotransferase (SGPT), serum 35 1/L [facility] [...] blood 28 mmol/L [facility] 21-33 Normal chl [id number]|2024-11-23 13:52:00|2024-11-23 13:52:00|XMS_ITS|BKG DAEMON|External Medical Summaries|[id number]|" Encounter Summary Created on: November 23, 2024 Alvaro Bui : 1955 Sex: Male Author Organization [facility] Address [address] [place] [address] Care Team Providers Care Vocational Rehabilitation Counselor Name Role Phone Kerrie Cespedes MD Primary Care Provider Reason for [...] CDT - 11/22/2024 5:37 PM CDT Emergency [facility] EMERGENCY DEPARTMENT [address] [place] [id number] Dizziness Discharge Disposition: Left Against Medical Advice/Discontinued [...] Recorded Patient Health Questionnaire-2 Score 0 07/26/2024 Citizen Of [place] [facility] - Occupational Stress [...] any time in the past 12 m [facility], were you homeless or living in a fci (including now)? 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 Answer Date of Assessment Author No 08/22/2024 9:25 AM PUBLIC HEALTH STAFF NURSE Horn, Art ie, RN * Does person have serious difficulty [...] signed by pt an uploaded ATT. * Enzo Veronicacolumba Adams, [employer] [facility] - 11/21/2024 7:33 PM CDT Medical Screening [...] History[1] Past Surgical History[2] Medications[3] Allergies[4] PCP: Kerrie Cespedes MD (Above may be pending completion) [...] care will be transferred to ER provider. Veronica Giraldo, [employer]I [1] Past Medical History: Diagnosis Date Heart [...] Description 01/14/2025 11:30 AM CDT Office Visit [facility] - Neurology [address] [place] [address], [place] [address] Willis Gloria MD [address] [place] [address] [place] [address] documented as of this encounter [...] SENSITIVE REFLEX 1HOUR (11/22/2024 3:51 AM CDT) Pathologist [facility] Troponin I High Sensitive 7 <=35 ng/L 11/22/2024 4:46 AM CDT [facility] Delta Troponin I HS 11/22/2024 4:46 AM CDT [facility] Comment:Delta value intentio edy not calculated. Baseline to 1 hour specimen collection interval exceeded. Blood BLOOD SPECIMEN / Unknown Venipuncture / Unknown 11/22/2024 3:51 AM CDT 11/22/2024 3:56 AM CDT us Veronica Giraldo [employer] [facility] - CHEMISTRY VALERIA BEAN Final Result [address] [address], [facility] [phone] * (ABNORMAL) URINALYSIS REFLEX MICROSCOPIC REFLEX CULTURE (11/21/2024 9:27 PM CDT) Color UA Yellow Yellow, Straw 11/21/2024 10:00 PM CDT [facility] Clarity UA Turbid(A) Clear 11/21/2024 10:00 PM CDT [facility] Glucose UA Normal Normal 11/21/2024 10:00 PM CDT [facility] Bilirubin UA Negative Negative 11/21/2024 10:00 PM CDT [facility] Ketone UA Negative Negative 11/21/2024 10:00 PM CDT [facility] Specific [place] UA 1.017 1.005 - 1.030 11/21/2024 10:00 PM CDT [facility] Blood UA Negative Negative 11/21/2024 10:00 PM CDT [facility] pH UA 7.5 5.0 - 8.0 pH 11/21/2024 10:00 PM CDT [facility] Protein UA Negative Negative 11/21/2024 10:00 PM CDT [facility] Urobilinogen UA Normal Normal mg/dL 11/21/2024 10:00 PM CDT [facility] Nitrite UA Negative Negative 11/21/2024 10:00 PM CDT [facility] Leukocyte UA Negative Negative 11/21/2024 10:00 PM T [facility] Reflex Status Culture not indicated 11/21/2024 10:00 PM T [facility] Urine URINE SPECIMEN OBTAINED BY CLEAN CATCH PROCEDURE / Unknown Collection / Unknown 11/21/2024 9:27 PM CDT 11/21/2024 9:32 PM CDT us Veronica Giraldo [employer] [facility] - URINALYSIS ORD ERABLES Final Result [address] [address], [facility] [phone] * EKG 12-LEAD (11/21/2024 9:26 PM CDT) Ventricular Rate 73 BPM [facility] MUSE Atrial Rate 73 BPM [facility] MUSE P-R Interval 178 ms [facility] MUSE QRS Duration ms 162 ms [facility] MUSE Q-T Interval ms 432 ms [facility] MUSE QTC Calculation (Bezet) 475 ms [facility] MUSE Calculated P [place] 47 degrees [facility] MUSE Calculated R [place] -68 degrees [facility] MUSE Calculated T [place] 39 degrees [facility] MUSE Interpretation EKG NORMAL SINUS RHYTHM RIGHT BUNDLE BRANCH BLOCK LEFT ANTERIOR FASCICULAR BLOCK BIFASCICULAR BLOCK MINIMAL VOLTAGE CRITERIA FOR LVH, MAY BE NORMAL VARIANT ( R in aVL ) ABNORMAL ECG WHEN COMPARED WITH ECG OF 20-AUG-2024 08:49, PREMATURE ATRIAL COMPLEXES ARE NO LONGER PRESENT Confirmed by KAPIL ALLEN MD ([id number]) on 11/22/2024 8:46:55 PM [facility] MUSE 11/21/2024 9:26 PM CDT 11/22/2024 8:46 PM CDT Veronica HOPKINS ECG ORDERABLES Edit ed Result - Final [facility] * TROPONIN-I HIGH SENSITIVE BASELINE + 1HR (11/21/2024 9:26 PM CDT) [facility] Troponin I High Sensitive 5 <=35 ng/L 11/21/2024 10:17 PM CDT [facility] Blood BLOOD SPECIMEN / Unknown Venipuncture / Unknown 11/21/2024 9:26 PM CDT 11/21/2024 9:46 PM CDT Veronica [facility] - CHEMISTRY ORDE RABLES Final Result [address] [address], [facility] [phone] * (ABNORMAL) COMPREHENSIVE METABOLIC PANEL (11/21/2024 9:26 PM CDT) [facility] BUN 13 7 - 26 mg/dL 11/21/2024 10:13 PM CDT [facility] Creatinine 0.73 0.71 - 1.16 mg/dL 11/21/2024 10:13 PM CDT [facility] Sodium 143 136 - 145 mmol/L 11/21/2024 10:13 PM CDT [facility] Potassium 3.8 3.5 - 4.5 mmol/L 11/21/2024 10:13 PM [facility] Chloride 108(H) 98 - 107 mmol/L 11/21/2024 10:13 PM [facility] CO2 22 22 - 29 mmol/L 11/21/2024 10:13 PM [facility] Glucose 97 70 - 99 mg/dL 11/21/2024 10:13 PM [facility] Calcium 9.8 8.4 - 10.2 mg/dL 11/21/2024 10:13 PM [facility] Protein Total 7.3 6.0 - 8.3 g/dL 11/21/2024 10:13 PM [facility] Albumin 3.8 3.4 - 5.0 g/dL 11/21/2024 10:13 PM [facility] Bilirubin Total 0.6 0.2 - 1.2 mg/dL 11/21/2024 10:13 PM [facility] Alkaline Phosphatase 92 40 - 150 U/L 11/21/2024 10:13 PM [facility] ALT 26 5 - 55 U/L 11/21/2024 10:13 PM [facility] AST 24 5 - 34 U/L 11/21/2024 10:13 PM [facility] Anion Gap 13 6 - 16 11/21/2024 10:13 PM [facility] BUN/Creatinine Ratio 18 7 - 23 11/21/2024 10:13 PM [facility] Osmolality Calculated 296(H) 275 - 295 mOsm/kg 11/21/2024 10:13 PM [facility] Albumin/Globulin Ratio 1.1 1.1 - 2.3 11/21/2024 10:13 PM [facility] eGFR by CKD-EPI >90 >=90 mL/min/1.7 3 m2 11/21/2024 10:13 PM [facility] Blood BLOOD SPECIMEN / Unknown Venipuncture / Unknown 11/21/2024 9:26 PM CDT 11/21/2024 9:46 PM [facility] us Veronica Giraldo [employer] [facility] - CHEMISTRY ORDE GENEVA Final Result [facility] [address] [place] [address], [facility] [phone] * CBC W AUTO DIFFERENTIAL (11/21/2024 9:26 PM [facility]) [facility] Signature WBC 9.4 4.0 - 10.7 x10E9/L 11/21/2024 10:02 PM [facility] RBC Count 4.79 4.30 - 5.80 x10E12/L 11/21/2024 10:02 PM [facility] Hemoglobin 14.4 13.3 - 17.5 g/dL 11/21/2024 10:02 PM [facility] Hematocrit 41.6 38.7 - 51.1 % 11/21/2024 10:02 PM [facility] MCV 86.8 80.0 - 98.0 fL 11/21/2024 10:02 PM [facility] MCH 30.1 26.7 - 33.6 pg 11/21/2024 10:02 PM [facility] MCHC 34.6 31.7 - 36.3 g/dL 11/21/2024 10:02 PM [facility] RDW-CV 13.1 11.3 - 14.8 % 11/21/2024 10:02 PM [facility] Platelet Count 272 150 - 420 x10E9/L 11/21/2024 10:02 PM [facility] MPV 9.6 7.8 - 11.4 fL 11/21/2024 10:02 PM [facility] Neutrophil % 69.9 41.0 - 74.0 % 11/21/2024 10:02 PM [facility] Lymphocyte % 21.5 17.0 - 47.0 % 11/21/2024 10:02 PM [facility] Monocyte % 7.1 3.0 - 11.0 % 11/21/2024 10:02 PM [facility] Eosinophil % 1.0 0.0 - 7.0 % 11/21/2024 10:02 PM [facility] Basophil % 0.3 0.0 - 1.6 % 11/21/2024 10:02 PM [facility] Immature Granulocytes % 0.2 0.0 - 1.0 % 11/21/2024 10:02 PM CDT [facility] Neutrophil Absolute 6.54 1.60 - 7.50 x10E9/L 11/21/2024 10:02 PM T [facility] Lymphocyte Absolute 2.01 1.00 - 4.40 x10E9/L 11/21/2024 10:02 PM T [facility] Monocyte Absolute 0.66 0.15 - 1.00 x10E9/L 11/21/2024 10:02 PM T [facility] Eosinophil Absolute 0.09 0.00 - 0.60 x10E9/L 11/21/2024 10:02 PM [facility] Basophil Absolute 0.03 0.00 - 0.13 x10E9/L 11/21/2024 10:02 PM T [facility] Blood BLOOD SPECIMEN / Unknown Venipuncture / Unknown 11/21/2024 9:26 PM CDT 11/21/2024 9:46 PM CDT us Veronica Giraldo [employer] [facility] - HEMATOLOGY ORD ERABLES Final Result [facility] [address] [place] [address], [facility] [phone] * CT Head Wo Contrast (11/21/2024 8:27 [...] evaluation. Report dictated by Sandro Lawson MD, (Manager Operating). Louie Lopez MD have personally reviewed and interpreted this examination/study. > Interpreting Provider: Louie Galarza MD on 11/21/2024 11:23 PM Narrative 11/21/2024 11:23 PM CDT PROCEDURE: CT HEAD WO CONTRAST, DATE/TIME OF EXAM: 11/21/2024 8:27 PM, LOCATION [facility] INDICATION: R42: Dizziness EXAMINATION: Computed tomography [...] DATE/TIME OF EXAM: 11/21/2024 8:27 PM, LOCATION [facility] INDICATION: R42: Dizziness EXAMINATION: Computed tomography [...] evaluation. Report dictated by Sandro Lawson MD, (Manager Operating). ILouie MD have personally reviewed and interpretedthis examination/study. > Interpreting Provider: Louie Galarza MD on 11/21/2024 11:23 PM us Veronica Giraldo [employer] [facility] CT ORDERABLES Kendra chuy Result * XR CHEST 1VW PORTABLE (11/21/2024 8:01 PM CDT) Anatomical Region Laterality Modality Chest Digital Radiogra phy 11/21/2024 8:08 PM CDT Narrative 11/21/2024 10:30 PM CDT PROCEDURE: XR CHEST 1VW PORTABLE, DATE/TIME OF EXAM: 11/21/2024 8:01 PM, LOCATION [facility] INDICATION: R42: Dizziness ADDITIONAL CLINICAL [...] hemidiaphragm. Report dictated by Sandro Lawson MD, (Manager Operating). Charlie Lopez MD have personally reviewed and interpreted this examination/study. > Interpreting Provider: Charlie Leon MD on 11/21/2024 10:30 PM Procedure Note Charlie Leon MD - 11/21/2024 PROCEDURE: XR CHEST 1VW PORTABLE, DATE/TIME OF EXAM: 11/21/2024 8:01PM, LOCATION [facility] INDICATION: R42: Dizziness ADDITIONAL CLINICAL [...] hemidiaphragm. Report dictated by Sandro Lawson MD, (Manager Operating). Charlie Lopez MD have personally reviewed and interpreted this examination/study. > Interpreting Provider: Charlie Leon MD on 11/21/2024 10:30 PM Veronica Giraldo [employer] DIAGNOSTIC IMAGING O RDERABLES Final Result documented [...] AND MAINTAIN (CANCELED) Routine, CONTINUOUS, Starting on 11/21/24 at 1945, Until Specified, New collection, [...] patency. documented in this encounter Care Teams Vocational Rehabilitation Counselor Relationship Specialty Start Date End Date Kerrie Cespedes MD [address] [address] PCP - General Internal Medicine 06/09/24 documented as of this encounter "
--- OUTSIDE RECORDS SUMMARY | 2024-11-23 13:53 | XMS_ITS | Encounter Summary ---
Author Organization [facility] Address [address] [place], [place] [address] [place] [address] Phone Care Team Providers Care Food Expeditor Name Role Phone Davion Barnes MD Primary Care Provider [phone] Reason for Visit * Reason Comments Med Refill Encounter Details Date Type Department Care Team (Late st Contact Info) Description 07/03/2022 Refill [facility], [address] [place] [address] Segun Jung MD 12[address] [facility] 1 [place] [address] Social History Tobacco Use Types [...] Description 03/23/2025 10:00 AM CDT Office Visit [facility] [address] [facility] 15 [place] [address] Segun Jung MD 12[address] [facility] 1 [place] [address] documented as of this encounter Visit Diagnoses Not on filedocumented in this encounter Care Teams Food Expeditor Relationship Specialty Start Date End Date Davion Barnes MD [address] [place] [address] PCP - General Cardiology 08/14/22 documented as of this encounter
--- OUTSIDE RECORDS SUMMARY | 2024-11-23 13:53 | XMS_ITS | Clinical Summary ---
Author Organization [facility] Address [address] [address] Care Team Providers Care Rotary Swaging Machine Operator Name Role Phone Davion Barnes MD Primary Care Provider [phone] Allergies No known active allergies Medications amLODIPine [...] Department Care Team Description 09/24/2024 Documentation Only [address] [address] Segun Jung MD 09/15/2024 10:00 AM CDT Office Visit [facility] 2043 [facility] 15 [place] [phone] Segun Jung MD Stage 1 chronic kidney disease (Primary Dx); Essential hypertension; Morbid (severe) obesity due to excess calories (HCC); Mixed hyperlipidemia; Type 2 diabetes mellitus, not otherwise specified (HCC); Vitamin D deficiency, not otherwise specified; Coronary atherosclerosis; Primary generalized osteoarthritis 09/08/2024 Orders Only [address] [phone] Segun Jung MD 08/31/2024 Documentation Only [address] [phone] Segun Jung MD from Last 3 Months [...] cm (5' 8 ) 09/10/2023 12:27 PM MEDICAL COLLECTIONS REPRESENTATIVE Body Mass Index 47.9 09/10/2023 12:27 PM MEDICAL COLLECTIONS REPRESENTATIVE Plan of Treatment Upcoming Encounters Date Type Department Care Team (Late st Contact Info) Description 03/23/2025 10:00 AM CDT Office Visit [facility], [facility] 20[address] [facility] 15 [place] [phone] Segun Jung MD 1265 [facility] 1 [place] [address] Health Maintenance Due Date Last [...] Diagnosis Comments NOTE Routine 09/08/2024 9:46 AM MEDICAL COLLECTIONS REPRESENTATIVE URINALYSIS RFX MICROSCOPIC Routine 09/08/2024 9:46 AM MEDICAL COLLECTIONS REPRESENTATIVE HEMOGLOBIN A1C Routine 09/08/2024 9:46 AM MEDICAL COLLECTIONS REPRESENTATIVE PROTEIN / CREATININE RATIO, URINE Routine 09/08/2024 9:46 AM MEDICAL COLLECTIONS REPRESENTATIVE VITAMIN D 25 HYDROXY Routine 09/08/2024 9:46 AM MEDICAL COLLECTIONS REPRESENTATIVE CBC AND DIFFERENTIAL Routine 09/08/2024 9:46 AM MEDICAL COLLECTIONS REPRESENTATIVE COMPREHENSIVE METABOLIC PANEL Routine 09/08/2024 9:46 AM MEDICAL COLLECTIONS REPRESENTATIVE PHOSPHATE ( PHOSPHORUS) Routine 09/08/2024 9:46 AM MEDICAL COLLECTIONS REPRESENTATIVE LIPID PANEL Routine 09/08/2024 9:46 AM MEDICAL COLLECTIONS REPRESENTATIVE PTH, INTACT AND CALCIUM Routine 09/08/2024 9:46 AM MEDICAL COLLECTIONS REPRESENTATIVE from Last 3 Months Results * NOTE (09/08/2024 9:46 AM MEDICAL COLLECTIONS REPRESENTATIVE) Note: See order comments Comment: This urine was analyzed for the presence of WBC, RBC, bacteria, casts, and other formed elements. Only those elements seen were reported. 09/08/2024 9:46 AM MEDICAL COLLECTIONS REPRESENTATIVE 09/08/2024 9:50 AM MEDICAL COLLECTIONS REPRESENTATIVE Narrative [facility] - 09/09/2024 10:31 AM MEDICAL COLLECTIONS REPRESENTATIVE FASTING:YES FASTING: YES Resulting Agency Comment Performing Organization Information: Site ID: [id number] Name: [facility] Address: [address] [place] [address] Director: Gillian Mendoza MD us Segun Jung MD LAB [id number] NSOLICITED RESULTS Final Result [facility] See order comments [place] [address] * PTH, Intact and Calcium (09/08/2024 9:46 AM MEDICAL COLLECTIONS REPRESENTATIVE) Parathyroid Hormone, Intact 22 16 - 77 pg/mL See order comments Comment: Interpretive Guide Intact PTH Calcium ------- Normal Parathyroid Normal Normal Hypoparathyroidism Low or Low Normal Low Hyperparathyroidism Primary Normal or High High Secondary High Normal or Low Tertiary High High Non-Parathyroid Hypercalcemia Low or Low Normal High Calcium 9.2 8.6 - 10.3 mg/dL See order comments 09/08/2024 9:4 6 AM MEDICAL COLLECTIONS REPRESENTATIVE 09/08/2024 9:50 AM MEDICAL COLLECTIONS REPRESENTATIVE Narrative [facility] - 09/09/2024 10:31 AM MEDICAL COLLECTIONS REPRESENTATIVE FASTING:YES FASTING: YES Resulting Agency Comment Performing Organization Information: Site ID: [id number] Name: [facility] [place] Address: [address] [place], [place] [address] [address] Director: Gillian Mendoza MD Segun Jung MD LAB BLOOD ORDERABLES Final R esult Performing Organization Address [facility] de Phone Number [facility] See order comments [place] [address] * Protein, Total, Random Urine w/Creatinine (Protein/Creat Ratio) (09/08/2024 9:46 AM MEDICAL COLLECTIONS REPRESENTATIVE) Creatinine, Ur 140 20 - 320 mg/dL See order comments Urine Protein/Creatin ine Ratio 100 25 - 148 mg/g creat See order comments Protein/Creatin ine Ratio, Urine 0.100 0.025 - 0.148 mg/mg creat See order comments Protein Urine Random 14 5 - 25 mg/dL See order comments 09/08/2024 9:46 AM MEDICAL COLLECTIONS REPRESENTATIVE 09/08/2024 9:50 AM MEDICAL COLLECTIONS REPRESENTATIVE Narrative [facility] - 09/09/2024 10:31 AM MEDICAL COLLECTIONS REPRESENTATIVE FASTING:YES FASTING: YES Resulting Agency Comment Performing Organization Information: Site ID: [id number] Name: [facility] Address: [address] [place] [address] Director: Gillian Mendoza MD us Segun Jung MD LAB URINE ORDERABLES Final R esult Performing Organization Address [facility] de Phone Number [facility] See order comments [place] [address] * (ABNORMAL) Urinalysis Reflex Microscopic (09/08/2024 9:46 AM MEDICAL COLLECTIONS REPRESENTATIVE) Color, Urine YELLOW YELLOW See ord er comments Appearance Urine CLEAR CLEAR See order comments Specific [place], UA 1.022 1.001 - 1.035 See order [...] by t he ancillary. 09/08/2024 9:46 AM MEDICAL COLLECTIONS REPRESENTATIVE 09/08/2024 9:50 AM MEDICAL COLLECTIONS REPRESENTATIVE Narrative [facility] - 09/09/2024 10:31 AM MEDICAL COLLECTIONS REPRESENTATIVE FASTING:YES FASTING: YES Resulting Agency Comment Performing Organization Information: Site ID: [id number] Name: [facility] [place] Address: [id number] [place] [address] Director: Gillian Mendoza MD us Segun Jung MD LAB URINE ORDERABLES Final R esult Performing Organization Address City/[facility]/ZIP Co de Phone Number [facility] See order comments [place] [address] * Vitamin D 25 Hydroxy (09/08/2024 9:46 AM MEDICAL COLLECTIONS REPRESENTATIVE) Vitamin D, 25-OH, Total, IA 54 30 [...] D, (D2,D3), LC/MS/MS is recommended: order code 88765 (patients >2yrs). See Note 1 Note 1 For additional information, please refer to http://education.LifeBook.Neolane/faq/LOU858 (This link is being provided for informational/ educational purposes only.) 09/08/2024 9:46 AM MEDICAL COLLECTIONS REPRESENTATIVE 09/08/2024 9:50 AM MEDICAL COLLECTIONS REPRESENTATIVE Narrative [facility] - 09/09/2024 10:31 AM MEDICAL COLLECTIONS REPRESENTATIVE FASTING:YES FASTING: YES Resulting Agency Comment Performing Organization Information: Site ID: [id number] Name: [facility] [place] Address: [address] [place] [address] Director: Gillian Mendoza MD Segun Jung MD LAB BLOOD ORDERABLES Final R esult [facility] See order comments [place] [address] * CBC and Differential (09/08/2024 9:46 AM MEDICAL COLLECTIONS REPRESENTATIVE) WBC 5.2 3.8 - 10.8 Thousand/ uL [...] by t he ancillary. 09/08/2024 9:46 AM MEDICAL COLLECTIONS REPRESENTATIVE 09/08/2024 9:50 AM MEDICAL COLLECTIONS REPRESENTATIVE Narrative [facility] - 09/09/2024 10:31 AM MEDICAL COLLECTIONS REPRESENTATIVE FASTING:YES FASTING: YES Resulting Agency Comment Performing Organization Information: Site ID: [id number] Name: [facility] [place] Address: [address] [place] [address] Director: Gillian Mendoza MD us Segun Jung MD LAB BLOOD ORDERABLES Final R esult [facility] See order comments [place] [address] * Phosphorus (09/08/2024 9:46 AM MEDICAL COLLECTIONS REPRESENTATIVE) Phosphorus 3.1 2.1 - 4.3 mg/dL See order comments 09/08/2024 9:46 AM MEDICAL COLLECTIONS REPRESENTATIVE 09/08/2024 9:50 AM MEDICAL COLLECTIONS REPRESENTATIVE Narrative [facility] - 09/09/2024 10:31 AM MEDICAL COLLECTIONS REPRESENTATIVE FASTING:YES FASTING: YES Resulting Agency Comment Performing Organization Information: Site ID: [id number] Name: [facility] [place] Address: [address] [place] [address] Director: Gillian Mendoza MD Segun Jung MD LAB BLOOD ORDERABLES Final R esult Performing Organization Address City/[facility] Co de Phone Number [facility] See order comments [place] [address] * (ABNORMAL) Hemoglobin A1c (09/08/2024 9:46 AM MEDICAL COLLECTIONS REPRESENTATIVE) Hemoglobin A1C 5.7(H) <5.7 % of total [...] of diabetes for children. 09/08/2024 9:46 AM MEDICAL COLLECTIONS REPRESENTATIVE 09/08/2024 9:50 AM MEDICAL COLLECTIONS REPRESENTATIVE Narrative [facility] - 09/09/2024 10:31 AM MEDICAL COLLECTIONS REPRESENTATIVE FASTING:YES FASTING: YES Resulting Agency Comment Performing Organization Information: Site ID: Name: [facility] Address: [address] [place] [address] Director: Gillian Mendoza Segun Jung MD LAB BLOOD ORDERABLES Final R esult Performing Organization Address City/[facility] Co de Phone Number [facility] See order comments [place] [address] * (ABNORMAL) Lipid panel (09/08/2024 9:46 AM MEDICAL COLLECTIONS REPRESENTATIVE) Cholesterol 106 <200 mg/dL See ord er [...] factors. LDL-C is now calculated using the Gilberto-Banuelos calculation, which is a validated novel method providing better accuracy than the Friedewald equation in the estimation of LDL-C. Gilberto SS et al. RUTHIE. 2013;310(19): 6294-2351 (http://education.Rippld/faq/IKE123) Chol/HDL Ratio 2.9 <5.0 (calc) See order comments Non HDL Cholesterol 69 <130 mg/dL (calc) See order comments Comment: For patients with diabetes plus 1 major ASCVD risk factor, treating to a non-HDL-C goal of <100 mg/dL (LDL-C of <70 mg/dL) is considered a therapeutic option. 09/08/2024 9:46 AM MEDICAL COLLECTIONS REPRESENTATIVE 09/08/2024 9:50 AM MEDICAL COLLECTIONS REPRESENTATIVE Narrative [facility] - 09/09/2024 10:31 AM MEDICAL COLLECTIONS REPRESENTATIVE FASTING:YES FASTING: YES Resulting Agency Comment Performing Organization Information: Site ID: [id number] Name: [facility] Address: [address] [place] [address] Director: Gillian Mendoza MD us Segun Jung MD LAB BLOOD ORDERABLES Final R esult [facility] See order comments [place] [address] * (ABNORMAL) Comprehensive Metabolic Panel (09/08/2024 9:46 AM MEDICAL COLLECTIONS REPRESENTATIVE) Glucose 109(H) 65 - 99 mg/dL See [...] U/L See order comments 09/08/2024 9:46 AM MEDICAL COLLECTIONS REPRESENTATIVE 09/08/2024 9:50 AM MEDICAL COLLECTIONS REPRESENTATIVE Narrative [facility] - 09/09/2024 10:31 AM MEDICAL COLLECTIONS REPRESENTATIVE FASTING:YES FASTING: YES Resulting Agency Comment Performing Organization Information: Site ID: [id number] Name: [facility] Address: [address] [place] [address] Director: Gillian Mendoza MD us Segun Jung MD LAB BLOOD ORDERABLES Final R esult [facility] See order comments [place] [address] from Last 3 Months Insurance [id number] Medicare Care Teams Rotary Swaging Machine Operator Relationship Specialty Start Date End Date Davion Barnes MD [address] [place] [address] PCP - General Cardiology 08/14/22
--- OUTSIDE RECORDS SUMMARY | 2024-11-23 13:53 | XMS_ITS | Encounter Summary ---
Author Organization [facility] Address [address] [place], [place] [address] [place] [address] Phone Care Team Providers Care Vegetable Canner Name Role Phone Davion Barnes MD Primary Care Provider [phone] Reason for Visit * Reason Comments Med Refill Encounter Details Date Type Department Care Team (Late st Contact Info) Description 07/03/2022 Refill [facility], [address] [place] [address] Segun Jung MD 12[address] [facility] 1 [place] [address] Social History Tobacco Use Types [...] Description 03/23/2025 10:00 AM CDT Office Visit [facility] 20[address] [facility] 15 [place] [address] Segun Jung MD 12[address] [facility] 1 [place] [address] documented as of this encounter Visit Diagnoses Not on filedocumented in this encounter Care Teams Vegetable Canner Relationship Specialty Start Date End Date Davion Barnes MD [address] [place] [address] PCP - General Cardiology 08/14/22 documented as of this encounter
[2024-11-23] MEDS: MECLIZINE HCL 25 MG TABLET PO (14:12)
[2024-11-23 14:17] LABS: Bacteria Urine None Seen /hpf; Non Pathogenic Casts 0-2; RBC Urine 0-2 /hpf (0-2); Squamous Epithelial Cell Urine None Seen /hpf (Few); WBC Urine 0-5 /hpf (0-3)
[2024-11-23 14:27] LABS: Add Urine Microscopic? NO; Appearance Urine Clear (Clear); Bilirubin Urine Negative (Negative); Blood Urine Negative (Negative); Color Urine Yellow (Yellow); Glucose Urine UA Negative (Negative); Ketones Urine Negative (Negative); Leukocyte Esterase Ur Negative LEU/UL (Negative); Nitrate Urine Negative (Negative); Protein Urine Negative (Negative); Specific Grav Ur 1.023 (1.001-1.035); pH Urine 6.5 (5.0-9.0)
[2024-11-23 15:05] VITALS: PULSE 67; RESP 15; O2SAT 96
[2024-11-23] MEDS: diazePAM INJ (*CRX) 10 MG/2 ML SYRINGE 5 MG IV PUSH (15:17)
[2024-11-23 16:04] VITALS: BP 145/63; PULSE 69; RESP 24; O2SAT 99
[2024-11-23] MEDS: PROMETHAZINE HCL 25 MG/ML AMPUL 12.5 MG IV PUSH (16:53)
[2024-11-23 16:55] VITALS: BP 145/63; PULSE 76; RESP 24; O2SAT 96
== END 2024-11-23 17:40 | disposition home or self-care (01) ==
PROVIDERS: Emergency Provider Student in an Organized Health Care Education/Training Program; PCP Internal Medicine
DX: R42 Dizziness and giddiness (principal); E66.2 Morbid (severe) obesity with alveolar hypoventilation; Z68.42 Body mass index [BMI] 45.0-49.9, adult; Z86.73 Personal history of transient ischemic attack (TIA), and cerebral infarction without residual deficits; I45.2 Bifascicular block; I44.0 Atrioventricular block, first degree; Z79.82 Long term (current) use of aspirin; Z79.899 Other long term (current) drug therapy
CPT/HCPCS: 36415; 70496; 70498; 80053; 81003; 85025; 93005; 96374; 96375; 99284; A9270; J2550; J3360; Q9967